=== PATIENT | male | born 1995 | race African-American/Black ===

== ENCOUNTER 2016-04-21 07:24 | Inpatient (IN) | payer OTHER ==
[~2016-04-21] VITALS: Ht 177.8 cm; Wt 58.5 kg
[~2016-04-21 07:24] MED LIST: CEFTIN500 MG PO; FOLIC ACID1 MG PO; HYDREA500 MG PO; VICODIN EQUIVAL1 TAB PO; ZITHROMAX500 MG PO
--- NOTE | 2016-04-21 08:30 | DIAGNOSTIC IMAGING REPORT ---
PROCEDURE: XR CHEST 1 VIEW INDICATION: SCIKLE CELL CRISIS, initial encounter TECHNIQUE: Portable AP view 07:38 a.m. COMPARISON: Chest x-ray 02/15/2016 FINDINGS: Stable left basilar pleural parenchymal scarring and left midlung granulomas. Heart and mediastinum are normal. Thorax is normal. IMPRESSION: 1. No acute changes 2. Left basilar pleural parenchymal scarring 3. Left midlung granulomas
--- NOTE | 2016-04-21 12:43 | ED CLINICAL REPORT ---
Clinical Report - Physicians/Mid Levels [facility] [address] [place] [address] 04/21/2016 7:25 Patient: SANTIAGO OLIVEIRA Time Seen: 07:22. Arrived- By ambulance. Historian- patient. HISTORY OF PRESENT ILLNESS Chief Complaint: SICKLE CELL CRISIS. At its maximum, severity described as severe. When seen in the E.D., severity described as severe. Modifying factors- (Better with fluids and meds). This started about 3 days ago and is still present. It has been waxing/waning. The patient has had muscle aches. Similar symptoms previously: Many times. REVIEW OF SYSTEMS The patient has had a subjective fever, a mild cough and chest pain (mild and resolved). No sore throat, nasal congestion, abdominal pain, nausea or vomiting. No difficulty with urination. He has had severe lower back pain. All systems otherwise negative, except as recorded above. PAST HISTORY PCP: [place] PROBLEMS: Pneumonia. Sickle Cell Disease. ADDITIONAL SURGERIES: no known surgeries. Problems: Pneumonia. Sickle Cell Disease. Sickle Cell Crisis. Additional Surgeries: no known surgeries. Medications: Hydroxyurea Oral. Folic Acid Oral. Allergies: No Known Drug Allergy. SOCIAL HISTORY Never smoker. No alcohol use or drug use. ADDITIONAL NOTES The nursing notes have been reviewed. PHYSICAL EXAM Vital Signs: 04/21/2016 07:39 BP: 129/75. HR: 75. RR: 19. O2 saturation: 100%. Pain level now: 8/10. 04/21/2016 07:21 BP: 135/86. HR: 67. RR: 12. O2 saturation: 100%. Temp: 98.7 F. Pain level now: 10/10. Appearance: Alert. Patient in mild distress. Eyes: Pupils equal, round and reactive to light. Eyes normal inspection. ENT: Pharynx normal. Neck: Normal inspection. Respiratory: No respiratory distress. Breath sounds normal. Chest nontender. Abdomen: No visible injury. Soft and nontender. Bowel sounds normal. Back: Normal inspection. Extremities: Extremities exhibit normal ROM. No lower extremity edema. Neuro: No alteration in mental status. LABS, X-RAYS, AND EKG EKG: Normal EKG. Rate: 64. Chest X-ray: (No acute changes. Old L basilar scarring). Laboratory Tests: [id number]: (BRIANA: 04/21/2016 07:50) ( MsgRcvd 04/21/2016 10:06) Final results Test Result Flag Units (Reference) RETIC # 0.1932 H M/uL (0.02-0.08) RETIC % 6.9 H % (0.5-1.5) CHANGE IN REPORTABLE RANGESValues reported are now absolute counts uncorrectedfor hematocrit. This change is effective 04/24/09. CBC w Diff: (BRIANA: 04/21/2016 07:48) ( MsgRcvd 04/21/2016 09:31) Final results Test Result Flag Units (Reference) WHITE BLOOD COUNT 14.2 H K/uL (4.5-11.5) CORRECTED WBC 13.7 K/uL RED BLOOD COUNT 2.80 L M/uL (4.50-5.90) HEMOGLOBIN 8.4 L gm/dL (13.5-17.5) HEMATOCRIT 25.5 L % (41.0-53.0) MEAN CELL VOLUME 91 fL (80-100) MEAN CORPUSCULAR HGB 30 pg (26-34) MEAN CORPUSCULAR HGB CONC 33 g/dL (31-37) RED CELL DISTRIBUTION WIDTH 23.7 H % (11.6-14.8) PLATELET COUNT 377 K/uL (150-400) POLY % 68 % (50-75) BAND % 6 % (0-8) LYMPH 9 L % (25-40) MONO 15 H % (3-14) EOSINOPHIL % 1 % (0-4) BASOPHIL % 1 % (0-2) METAMYELOCYTE % 0 % (0-1) MYELOCYTE 0 % (0-1) NUCLEATED RED BLOOD CELL 4 H (0-1) OTHER CELL TYPE 0 RBC MORPHOLOGY SICKLE CELLS 4+ POLYCHROMASIA 2+ SCHISTOCYTES 1+ TARGET CELLS 4+ ACANTHOCYTES 1+ CMP: (BRIANA: 04/21/2016 07:48) ( MsgRcvd 04/21/2016 08:46) Final results Test Result Flag Units (Reference) GLUCOSE 104 mg/dL (70-110) BUN 6 L mg/dL (7-18) CREATININE 0.8 mg/dL (0.6-1.3) Estimated GFR >60 mL/min Estimated GFR- >60 mL/min Note: Persistent reduction over 3 months in eGFR<60 mL/min/1.73 m2 defines CKD. Patients with eGFR values>=60 mL/min/1.73 m2 may also have CKD if evidence ofpersistent proteinuria. Additional information may be foundat [email or web address]. SODIUM 139 mmol/L (136-145) POTASSIUM 3.6 mmol/L (3.5-5.1) CHLORIDE 107 mmol/L (98-107) CARBON DIOXIDE 25 mmol/L (21-32) CALCIUM 7.9 L mg/dL (8.5-10.1) TOTAL PROTEIN 7.0 g/dL (6.4-8.2) ALBUMIN 4.1 g/dL (3.3-5.0) BILIRUBIN, TOTAL 1.5 H mg/dL (0.0-1.0) ALKALINE PHOSPHATASE 83 U/L (46-116) AST (SGOT) 41 H U/L (15-37) ALT (SGPT) 24 U/L (12-78) . PROGRESS AND PROCEDURES Course of Care: 08:02 04/21/16. He appears comfortable. He states his pain is still a 7/10. 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 His mom is doing that now. 09:05 04/21/16. Care transferred to Dr Holt due to change of shift/ R MD Dr. Charly Parks and I discussed the patient's history and examination findings as well as the results of his studies. I then reviewed the patient's history with him and examined him and my findings were consistent with those noted by Dr. Parks. I continued to follow the patient and in spite of aggressive attempts at pain management he continued to have severe pain. It had resolved in his lower back and shoulder blades however he developed some central chest pain. After multiple subsequent doses of Dilaudid this improved but did not resolve. We continued with hydration and I spoke with Dr. Joy. We will admit the patient for observation and continued pain management and IV fluids. Discussed case with on-call health care provider, (Benita). Reviewed test results and need for additional work-up. Agreed upon treatment plan, need for patient follow-up and decision to place in observation. Health care provider will see patient in hospital. Old medical records reviewed. Disposition orders written (in [facility]). Disposition: Admitted. Observation. CLINICAL IMPRESSION Vaso-occlusive sickle cell crisis. (Electronically signed by Clifford Holt MD 04/21/2016 16:32)
--- NOTE | 2016-04-21 12:43 | ED ORDER SUMMARY ---
..... Patient: SANTIAGO OLIVEIRA OrderSheet [facility] VisitID: [id number] [place] [address] 20y, M Registration Date/Time: 04/21/2016 ORDER SHEET Weight: 61.2 kg (stated) Allergies: No Known Drug Allergy GENERAL ORDERS: - (RETIULOCYTE COUNT) (07:29 04/21/2016 Saqib AMARO) (7:31 EHrupert R.N.) Chest 1V Urgent (07:04/21/2016 Saqib AMARO) (7:31 Suman R.N.) CBC w Diff Urgent (07:04/21/2016 Saqib AMARO) (7:31 Suman R.N.) CMP Urgent (07:04/21/2016 Saqib AMARO) (7:31 Suman R.N.) - (Yesterdays [place] visit) (07:35 04/21/2016 Saqib AMARO) (Ack 7:43 LNations ER Tech1) (7:56 LNations ER Tech1) EKG - ER Stat (12:37 04/21/2016 Anastasia AMARO) (Ack 12:38 NHouse ER Tech1) (12:56 LNations ER Tech1) MEDICATION ORDERS: IV FLUIDS: IV NS : initial bolus none -, then 1000 mL/hr for 1h (NOW); Urgent (BAG #1) (07:22 04/21/2016 Saqib AMARO) (Ack 7:27 JBoardley R.N.) (7:36 JBoardley R.N.) Dilaudid IV 1 mg + 0.5 MG (HIGH ALERT MEDICATION) (07:23 04/21/2016 Saqib AMARO) (Ack 7:27 JBoardley R.N.) (7:37 JBoardley R.N.) Zofran IV 4 mg (NOW) (07:24 04/21/2016 Saqib AMARO) (Ack 7:27 JBoardley R.N.) (7:37 JBoardley R.N.) Dilaudid IV 0.5 mg + 0.5 mg (HIGH ALERT MEDICATION) (08:04/21/2016 Saqib AMARO) (8:12 Suman R.N.) Toradol IV 30 mg (NOW) (08:26 04/21/2016 Saqib AMARO) (8:47 EHassan R.N.) IV NS : initial bolus none -, then 500 mL/hr for 2h (NOW); Urgent (08:49 04/21/2016 Saqib AMARO) (9:07 EHassan R.N.) Dilaudid IV 0.5 mg (May repeat every 15 minutes for a total of 1.5 mg) (09:30 04/21/2016 Suman R.N. verbal order read back to Anastasia AMARO) (9:37 WENCESLAOassan R.N.) Dilaudid IV 1 mg (HIGH ALERT MEDICATION, NOW) (11:58 04/21/2016 JBoarambika R.N. verbal order read back to Anastasia AMARO) (11:58 JBoardley R.N.) Dilaudid IV 1 mg (HIGH ALERT MEDICATION, NOW) (12:43 04/21/2016 NOHEMYoarambika R.N. verbal order read back to Anastasia AMARO) (12:43 JBoardlelyle R.N.) IV NS : initial bolus none -, then 1000 mL/hr for X1 (NOW); Tor (12:43 04/21/2016 JBoarambika R.N. verbal order read back to Anastasia AMARO) (12:44 JBoardley R.N.) Dilaudid IV 1 mg (NOW) (14:24 04/21/2016 Suman R.N. verbal order read back to Anastasia AMARO) (14:33 WENCESLAOassan R.N.) ORDER SHEET NOTES: [Electronically signed by Moira Mckenna R.N. (15:49 04/21/2016)] [Electronically signed by Clifford Holt MD (16:32 04/21/2016)] [Electronically locked/signed by Moira Mckenna R.N. (15:49 04/21/2016)]
--- NOTE | 2016-04-21 12:43 | ED CLINICAL REPORT ---
Clinical Report - Physicians/Mid Levels [facility] [address] [place] [address] 04/21/2016 7:25 Patient: SANTIAGO OLIVEIRA Time Seen: 07:22. Arrived- By ambulance. Historian- patient. HISTORY OF PRESENT ILLNESS Chief Complaint: SICKLE CELL CRISIS. At its maximum, severity described as severe. When seen in the E.D., severity described as severe. Modifying factors- (Better with fluids and meds). This started about 3 days ago and is still present. It has been waxing/waning. The patient has had muscle aches. Similar symptoms previously: Many times. REVIEW OF SYSTEMS The patient has had a subjective fever, a mild cough and chest pain (mild and resolved). No sore throat, nasal congestion, abdominal pain, nausea or vomiting. No difficulty with urination. He has had severe lower back pain. All systems otherwise negative, except as recorded above. PAST HISTORY PCP: [place] PROBLEMS: Pneumonia. Sickle Cell Disease. ADDITIONAL SURGERIES: no known surgeries. Problems: Pneumonia. Sickle Cell Disease. Sickle Cell Crisis. Additional Surgeries: no known surgeries. Medications: Hydroxyurea Oral. Folic Acid Oral. Allergies: No Known Drug Allergy. SOCIAL HISTORY Never smoker. No alcohol use or drug use. ADDITIONAL NOTES The nursing notes have been reviewed. PHYSICAL EXAM Vital Signs: 04/21/2016 07:39 BP: 129/75. HR: 75. RR: 19. O2 saturation: 100%. Pain level now: 8/10. 04/21/2016 07:21 BP: 135/86. HR: 67. RR: 12. O2 saturation: 100%. Temp: 98.7 F. Pain level now: 10/10. Appearance: Alert. Patient in mild distress. Eyes: Pupils equal, round and reactive to light. Eyes normal inspection. ENT: Pharynx normal. Neck: Normal inspection. Respiratory: No respiratory distress. Breath sounds normal. Chest nontender. Abdomen: No visible injury. Soft and nontender. Bowel sounds normal. Back: Normal inspection. Extremities: Extremities exhibit normal ROM. No lower extremity edema. Neuro: No alteration in mental status. LABS, X-RAYS, AND EKG EKG: Normal EKG. Rate: 64. Chest X-ray: (No acute changes. Old L basilar scarring). Laboratory Tests: [id number]: (BRIANA: 04/21/2016 07:50) ( MsgRcvd 04/21/2016 10:06) Final results Test Result Flag Units (Reference) RETIC # 0.1932 H M/uL (0.02-0.08) RETIC % 6.9 H % (0.5-1.5) CHANGE IN REPORTABLE RANGESValues reported are now absolute counts uncorrectedfor hematocrit. This change is effective 04/24/09. CBC w Diff: (BRIANA: 04/21/2016 07:48) ( MsgRcvd 04/21/2016 09:31) Final results Test Result Flag Units (Reference) WHITE BLOOD COUNT 14.2 H K/uL (4.5-11.5) CORRECTED WBC 13.7 K/uL RED BLOOD COUNT 2.80 L M/uL (4.50-5.90) HEMOGLOBIN 8.4 L gm/dL (13.5-17.5) HEMATOCRIT 25.5 L % (41.0-53.0) MEAN CELL VOLUME 91 fL (80-100) MEAN CORPUSCULAR HGB 30 pg (26-34) MEAN CORPUSCULAR HGB CONC 33 g/dL (31-37) RED CELL DISTRIBUTION WIDTH 23.7 H % (11.6-14.8) PLATELET COUNT 377 K/uL (150-400) POLY % 68 % (50-75) BAND % 6 % (0-8) LYMPH 9 L % (25-40) MONO 15 H % (3-14) EOSINOPHIL % 1 % (0-4) BASOPHIL % 1 % (0-2) METAMYELOCYTE % 0 % (0-1) MYELOCYTE 0 % (0-1) NUCLEATED RED BLOOD CELL 4 H (0-1) OTHER CELL TYPE 0 RBC MORPHOLOGY SICKLE CELLS 4+ POLYCHROMASIA 2+ SCHISTOCYTES 1+ TARGET CELLS 4+ ACANTHOCYTES 1+ CMP: (BRIANA: 04/21/2016 07:48) ( MsgRcvd 04/21/2016 08:46) Final results Test Result Flag Units (Reference) GLUCOSE 104 mg/dL (70-110) BUN 6 L mg/dL (7-18) CREATININE 0.8 mg/dL (0.6-1.3) Estimated GFR >60 mL/min Estimated GFR- >60 mL/min Note: Persistent reduction over 3 months in eGFR<60 mL/min/1.73 m2 defines CKD. Patients with eGFR values>=60 mL/min/1.73 m2 may also have CKD if evidence ofpersistent proteinuria. Additional information may be foundat [email or web address]. SODIUM 139 mmol/L (136-145) POTASSIUM 3.6 mmol/L (3.5-5.1) CHLORIDE 107 mmol/L (98-107) CARBON DIOXIDE 25 mmol/L (21-32) CALCIUM 7.9 L mg/dL (8.5-10.1) TOTAL PROTEIN 7.0 g/dL (6.4-8.2) ALBUMIN 4.1 g/dL (3.3-5.0) BILIRUBIN, TOTAL 1.5 H mg/dL (0.0-1.0) ALKALINE PHOSPHATASE 83 U/L (46-116) AST (SGOT) 41 H U/L (15-37) ALT (SGPT) 24 U/L (12-78) . PROGRESS AND PROCEDURES Course of Care: 08:02 04/21/16. He appears comfortable. He states his pain is still a 7/10. He has established primary care with [facility] but has yet to arrange a follow up with a wreath maker. His mom is doing that now. 09:05 04/21/16. Care transferred to Dr Holt due to change of shift/ R MD Dr. Charly Parks and I discussed the patient's history and examination findings as well as the results of his studies. I then reviewed the patient's history with him and examined him and my findings were consistent with those noted by Dr. Parks. I continued to follow the patient and in spite of aggressive attempts at pain management he continued to have severe pain. It had resolved in his lower back and shoulder blades however he developed some central chest pain. After multiple subsequent doses of Dilaudid this improved but did not resolve. We continued with hydration and I spoke with Dr. Joy. We will admit the patient for observation and continued pain management and IV fluids. Discussed case with on-call health care provider, (Benita). Reviewed test results and need for additional work-up. Agreed upon treatment plan, need for patient follow-up and decision to place in observation. Health care provider will see patient in hospital. Old medical records reviewed. Disposition orders written (in [facility]). Disposition: Admitted. Observation. CLINICAL IMPRESSION Vaso-occlusive sickle cell crisis. (Electronically signed by Clifford Holt MD 04/21/2016 16:32)
--- NOTE | 2016-04-21 12:43 | ED NURSING NOTES ---
Clinical Report - Nurses [facility] [address] [place] [address] 04/21/2016 7:25 Patient: SANTIAGO OLIVEIRA TRIAGE Triage time 0717 AM. Acuity: LEVEL 3. Alert. No acute distress. SEPSIS SCREEN: Sepsis Screen. Negative (no infection suspected/documented). BREATHALYZER: Breathalyzer. --07:29 Moira Mckenna R.N. 07:21 04/21/16. BP: 135/86 (regular adult cuff) taken on the right arm, via an automated monitor, while lying. HR: 67 (regular). RR: 12. O2 saturation: 100% on room air. Temp: 98.7 F (oral). Pain level now: 01/11. --07:29 Moira Mckenna R.N. Chief Complaint: (Sickle Cell). 07:17 late entry - AM. --15:48 Moira Mckenna R.N. late entry - 07:20 AM. --07:39 Moira Mckenna R.N. 07:29 AM correction to prior entry -no breathalyzer. --07:59 Moira Mckenna R.N. Weight: 61.2 kg stated. Height/Length: 70 inches Per Patient. BMI: 19.4. --07:23 Moira Mckenna R.N. Medications Folic Acid Oral. --07:23 Moira Mckenna R.N. Hydroxyurea Oral. --07:28 Moira Mckenna R.N. Allergies No Known Drug Allergy. --07:23 Moira Mckenna R.N. Medication/allergy information source: the patient. --07:29 Moira Mckenna R.N. History Arrived by EMS. Historian: patient. Primary physician (Dr. Lalo Stokes). ( Pt arrived via EMS, sickle cell crisis, states started 2 days ago, has an appointment with Dr. trevino, but could not take the pain. Pt states pain is mostly from right side of head, down to elbow, and left side back pain 10/10.). Onset. (2 days ago). He has had fever and a cough. Reports muscle aches. 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 (1000 mg). PAST MEDICAL HX: Immunizations: up-to-date. SOCIAL HX: Never smoker. No alcohol use or drug use. No infectious disease exposure. ABUSE ASSESSMENT: No report of abuse. SELF HARM ASSESSMENT: A self harm assessment was performed. The patient answered "no" to the question "Do you have thoughts of harming or killing yourself?" and "Have you recently had thoughts about harming or killing others?". FALL RISK ASSESSMENT: Fall risk assessment completed. No fall risk identified. NUTRITIONAL RISK ASSESSMENT: The nutritional risk assessment revealed no deficiencies. FUNCTIONAL ASSESSMENT: Functional assessment: no impairments noted. LEARNING NEEDS ASSESSMENT: The learning needs assessment revealed no barriers. SKIN INTEGRITY ASSESSMENT: Skin integrity risk assessment completed. No skin integrity risk identified. --07:29 Moira Mckenna R.N. Arrived by EMS, and being carried from home (stretcher). 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 See report. Medications given- (200 micrograms). ( VSS). Upon arrival patient awake. IV infusing x1. school lunch monitor and O2 sat monitor in place. --07:39 Moira Mckenna R.N. PROBLEMS: Pneumonia. Sickle Cell Disease. --07:28 Moira Mckenna R.N. ADDITIONAL SURGERIES: no known surgeries. Interventions ID band on patient. --07:29 Moira Mckenna R.N. PHYSICAL ASSESSMENT To room via stretcher. GENERAL / NEURO / PSYCH: Alert. Oriented X 4. Appears in pain. HEENT: Pupils equal, round and reactive to light. No facial asymmetry noted. Mucous membranes are pink. RESPIRATORY: Respirations not labored. Chest nontender. Breath sounds within normal limits. CVS: Normal sinus rhythm noted. Capillary refill less than 2 seconds. Pulses within normal limits. GI / : Abdomen soft and nontender and normal bowel sounds. SKIN: Skin intact. Skin is warm and dry. Normal skin turgor. --07:30 Moira Mckenna R.N. NURSING PROGRESS NOTES 07:00 04/21/2016 Site #1 started prior to arrival by EMS via IV in the left antecubital space with an 18g angiocath. --07:36 Sourav Sahni R.N. 07:26 04/21/2016 Started bag #1 1000 mL IV Fluids IV NS (Saline); at 1000 mL/hr over 1 hour(s) via site #1. Allergies verified and confirmed 5 rights. IV patency established. IV site checked: no pain, redness, or swelling. IV flushed thoroughly pre- and post-medication administration. Completed per protocol. --07:36 Sourav Sahni R.N. 07:27 04/21/2016 Dilaudid (HYDROmorphone HCl PF) IVP 1 mg given over 2 minute(s) via site #1. Allergies verified, confirmed 5 rights and sedative warning given to the patient. IV patency established. IV site checked: no pain, redness, or swelling. IV flushed thoroughly pre- and post-medication administration. IVP given by RN. --07:37 Sourav Sahni R.N. 07:27 04/21/2016 Zofran (Ondansetron HCl) IVP 4 mg given over 2 minute(s) via site #1. Allergies verified and confirmed 5 rights. IV patency established. IV site checked: no pain, redness, or swelling. IV flushed thoroughly pre- and post-medication administration. IVP given by RN. --07:37 Sourav Sahni R.N. 07:39 04/21/16. BP: 129/75 (regular adult cuff) taken on the right arm, via an automated monitor, while lying. HR: 75 (regular and normal rate). RR: 19 (regular and unlabored). O2 saturation: 100%. O2 started via nasal cannula at 2 liters/minute. Pain level now: 11/11. --07:45 Moira Mckenna RFranciscoN. Cardiac rhythm: normal sinus rhythm. The initial plan of care for this patient has been created This plan of care was discussed with the patient. Oxygen administered. Monitoring of patient in place. Patient ID band checked for patient name, birthdate and medical record number. Blood samples drawn from the right antecubital space with 22g butterfly by lab per protocol ; labeled in presence of the patient and sent to lab: rainbow set. Portable chest x-ray performed. Patient gowned. Warming measures: blanket applied. Reassurance given. Reassessment after oxygen and fluids administered and medication administered. He has had no adverse reaction. Overall patient status- he states feels better (8/10). GENERAL / NEURO / PSYCH: The patient reports headache. Denies anxiety. RESPIRATORY: Denies difficulty breathing. Respiratory distress present. Breath sounds abnormal. CVS: Denies chest pain. Normal sinus rhythm noted. GI / : The patient reports nausea. SKIN: Skin is warm and dry. Skin color within normal limits. Two patient identifiers checked. Call light placed in reach. Side rails up x 2. Bed placed in lowest position. Brakes of bed on. Brakes of chair on. --07:45 Moira Mckenna R.N. 07:46 04/21/2016 Dilaudid IVP Response: no adverse reaction pain is improving. Symptoms are the same. The patient feels the same. ED physician notified. --07:51 Moira Mckenna R.N. 07:51 04/21/2016 Dilaudid (HYDROmorphone HCl PF) IVP 0.5 mg given over 30 second(s) via site #1. Allergies verified, confirmed 5 rights and sedative warning given to the patient. IV patency established. IV site checked: no pain, redness, or swelling. IV flushed thoroughly pre- and post-medication administration. IVP given by RN. --07:51 Moira Mckenna R.N. 08:08 04/21/2016 Dilaudid IVP Response: no adverse reaction pain is improving. Symptoms have improved the patient feels better. ED physician notified. --08:11 Moira Mckenna R.N. 08:12 04/21/2016 Dilaudid (HYDROmorphone HCl PF) IVP 0.5 mg given over 1 minute(s) via site #1. Allergies verified, confirmed 5 rights and sedative warning given to the patient. IV patency established. IV site checked: no pain, redness, or swelling. IV flushed thoroughly pre- and post-medication administration. IVP given by RN. --08:12 Moira Mckenna R.N. 08:10 04/21/16. BP: 121/63 (regular adult cuff) taken on the right arm, via an automated monitor, while lying. HR: 64 (regular and normal rate). RR: 16 (regular, unlabored and normal). O2 saturation: 100%. O2 started via nasal cannula at 2 liters/minute. Pain level now: 11/11. --08:16 Moira Mckenna R.N. Cardiac rhythm: normal sinus rhythm. Reassurance given. Reassessment after oxygen and fluids administered and medication administered. He is resting quietly and has had no adverse reaction. Overall patient status is improved- he states feels better. GENERAL / NEURO / PSYCH: Denies headache or anxiety. RESPIRATORY: No respiratory distress present. Respiratory distress present. CVS: Denies chest pain. Normal sinus rhythm noted. GI / : Denies nausea. Two patient identifiers checked. Call light placed in reach. Side rails up x 2. Bed placed in lowest position. Brakes of bed on. Brakes of chair on. --08:16 Moira Mckenna R.N. 08:32 04/21/2016 Dilaudid IVP Response: no adverse reaction symptoms are the same. The patient feels the same. --08:47 Moira Mckenna R.N. 08:37 04/21/2016 Toradol IVP 30 mg given over 1 minute(s) via site #1. Allergies verified and confirmed 5 rights. IV patency established. IV site checked: no pain, redness, or swelling. IV flushed thoroughly pre- and post-medication administration. IVP given by RN. --08:47 Moira Mckenna R.N. 09:00 04/21/2016 Dilaudid (HYDROmorphone HCl PF) IVP 0.5 mg given over 1 minute(s) via site #1. Allergies verified, confirmed 5 rights and sedative warning given to the patient. IV patency established. IV site checked: no pain, redness, or swelling. IV flushed thoroughly pre- and post-medication administration. IVP given by RN. --09:05 Miora Mckenna R.N. 09:05 04/21/2016 Toradol IVP Response: no adverse reaction pain is improving. Symptoms have improved the patient feels better. ED physician notified. --09:05 Moira Mckenna R.N. 09:04/21/2016 IV Fluids IV NS Response: no adverse reaction. --09:05 Moira Mckenna R.N. 09:07 04/21/2016 Started bag #1 1000 mL IV Fluids IV NS (Saline); at 500 mL/hr over 2 hour(s) via site #1 via IV pump. Allergies verified and confirmed 5 rights. IV patency established. IV site checked: no pain, redness, or swelling. IV flushed thoroughly pre- and post-medication administration. --09:07 Moira Mckenna R.N. 09:07 04/21/2016 IV Fluids IV NS Discontinued: bag #1 completed upon admission. Total amount infused: 800 mL. IV patency established. IV site checked: no pain, redness, or swelling. IV flushed thoroughly. --09:07 Moira Mckenna R.N. 09:37 04/21/2016 Dilaudid (HYDROmorphone HCl PF) IVP 0.5 mg given over 1 minute(s) via site #1. Allergies verified, confirmed 5 rights and sedative warning given to the patient. IV patency established. IV site checked: no pain, redness, or swelling. IV flushed thoroughly pre- and post-medication administration. IVP given by RN. --09:37 Moira Mckenna R.N. 09:30 04/21/16. BP: 142/82 taken on the right arm, via an automated monitor, while lying. HR: 62. RR: 15. O2 saturation: 100%. Pain level now: 710. --09:39 Moira Mckenna R.N. Cardiac rhythm: normal sinus rhythm. Reassurance given. Reassessment after oxygen and fluids administered and medication administered. He has had no adverse reaction. Overall patient status is improved- he states feels the same (Pain down to a 6/7). ( Dr. Holt aware of pt's pain level, dilaudid given as ordered and fluids infusing). GENERAL / NEURO / PSYCH: Denies headache. RESPIRATORY: Denies difficulty breathing. CVS: Denies chest pain. GI / : Denies nausea. Two patient identifiers checked. Call light placed in reach. Side rails up x 2. Brakes of bed on. Brakes of chair on. --09:39 Moira Mckenna R.N. 10:01 04/21/2016 Dilaudid IVP Response: no adverse reaction pain is worsening. Symptoms have gotten worse. The patient feels worse. --10:01 Moira Mckenna R.N. 10:02 04/21/2016 Dilaudid (HYDROmorphone HCl PF) IVP 0.5 mg given over 1 minute(s) via site #1. Allergies verified, confirmed 5 rights and sedative warning given to the patient. IV patency established. IV site checked: no pain, redness, or swelling. IV flushed thoroughly pre- and post-medication administration. IVP given by RN. --10:02 Moira Mckenna R.N. Oxygen administered. Reassurance given. The patient has had no adverse reaction. Overall patient status is improved- he states feels worse. ( Pt found moaning out of bed sitting in chair, O2 and monitor off,). RESPIRATORY: Denies difficulty breathing. CVS: Denies chest pain. GI / : Denies nausea. Two patient identifiers checked. Call light placed in reach. Side rails up x 1. Brakes of bed on. Brakes of chair on. --10:05 Moira Mckenna R.N. 10:02 04/21/16. BP: 142/82. HR: 91. RR: 20. O2 saturation: 92% on room air. Pain level now: 01/11. --10:05 Moira Mckenna R.N. 10:15 04/21/2016 Dilaudid (HYDROmorphone HCl PF) IVP 0.5 mg given over 1 minute(s) via site #1. Allergies verified, confirmed 5 rights and sedative warning given to the patient. IV patency established. IV site checked: no pain, redness, or swelling. IV flushed thoroughly pre- and post-medication administration. IVP given by RN. --10:15 Moira Mckenna R.N. 10:16 04/21/2016 Dilaudid IVP Response: no adverse reaction pain is worsening. Symptoms have gotten worse. The patient feels worse. ED physician notified (Aware, will given another dose sooner than 15 minutes (ok by MD Holt). --10:16 Moira Mckenna R.N. 10:52 04/21/2016 Dilaudid IVP Response: no adverse reaction pain is improving. Symptoms are the same. The patient feels better. --11:02 Moira Mckenna R.N. 11:24 04/21/2016 IV Fluids IV NS Discontinued: bag #1 infused. Total amount infused: 1 Liter mL. IV patency established. IV site checked: no pain, redness, or swelling. IV flushed thoroughly. --11:49 Sourav Sahni R.N. 11:42 04/21/16. ( Pt ambulated to bathroom without difficulty). --11:42 Sourav Sahni R.N. 11:58 04/21/2016 Dilaudid (HYDROmorphone HCl PF) IVP 1 mg given over 2 minute(s) via site #1. Allergies verified, confirmed 5 rights and sedative warning given. IV patency established. IV site checked: no pain, redness, or swelling. IV flushed thoroughly pre- and post-medication administration. IVP given by RN. --11:58 Sourav Sahni R.N. 11:58 04/21/16. Patient and family informed about reason for wait and about plan of care. --11:58 Sourav Sahni R.N. 12:00 04/21/16. ( Pt calling mother to come and pick him up). --12:00 Sourav Sahni R.N. 12:43 04/21/2016 Dilaudid (HYDROmorphone HCl PF) IVP 1 mg given over 2 minute(s) via site #1. Allergies verified, confirmed 5 rights and sedative warning given to the patient. IV patency established. IV site checked: no pain, redness, or swelling. IV flushed thoroughly pre- and post-medication administration. IVP given by RN. --12:43 Sourav Sahni R.N. 12:44 04/21/2016 Started bag #1 1000 mL IV Fluids IV NS (Saline); at 1000 mL/hr over 1 hour(s) via site #1. Allergies verified and confirmed 5 rights. Completed per protocol. --12:44 Sourav Sahni R.N. 12:44 04/21/16. ( Pt to be admitted for sickle cell crisis, pt aware). --12:44 Sourav Sahni R.N. 12:45 04/21/16. ( Pts pain has not been controlled with IV pain meds). --12:45 Sourav Sahni R.N. 12:46 04/21/16. --12:46 Sourav Sahni R.N. 12:46 04/21/16. BP: 140/92. HR: 61. RR: 14. O2 saturation: 100% on room air. Temp: 98.1 F (oral). Pain level now: 10/11. --12:46 Sourav Sahni R.N. 12:46 04/21/16. Pulse oximeter and NIBP monitor placed on patient; monitor alarms on. --12:46 Sourav Sahni R.N. EKG time: (1350). EKG was ordered, performed by a tech and shown to the ED physician. --12:57 Briana Vargas ER Tech1 13:47 04/21/2016 IV Fluids IV NS Discontinued: infused. Total amount infused: 1 Liter mL. IV patency established. IV site checked: no pain, redness, or swelling. IV flushed thoroughly. --13:47 Sourav Sahni R.N. 13:47 04/21/16. ( Pt is ambulating around room, feels better). --13:47 Sourav Sahni R.N. 14:33 04/21/2016 Dilaudid (HYDROmorphone HCl PF) IVP 1 mg given over 2 minute(s) via site #1. Allergies verified, confirmed 5 rights and sedative warning given to the patient. IV patency established. IV site checked: no pain, redness, or swelling. IV flushed thoroughly pre- and post-medication administration. IVP given by RN. --14:33 Moira Mckenna R.N. 15:08 04/21/2016 Dilaudid IVP Response: no adverse reaction pain is improving. Symptoms are the same. The patient feels the same. --15:33 Moira Mckenna R.N. Reassessment after oxygen and fluids administered and medication administered. He has had no adverse reaction. Overall patient status is improved- he states feels the same. RESPIRATORY: Respiratory distress present. GI / : Denies nausea. SKIN: Skin is warm and dry. Skin color within normal limits. --15:41 Moira Mckenna R.N. DISPOSITION / DISCHARGE 15:08 04/21/16. --15:08 Sourav Sahni R.N. 15:08 04/21/16. BP: 131/77. HR: 72. RR: 16. O2 saturation: 99% on room air. Temp: 98.2 F (oral). Pain level now: 10/11. --15:08 Sourav Sahni R.N. 15:26 04/21/2016 Site #1 reassessed; patent and infusing well. Converted to saline lock. Flushed with 10 mL saline. --15:31 Moira Mckenna R.N. Departure time: 1530 PM. Condition at departure: improved and stable. The goals identified in the patient's plan of care were met. Transported via stretcher by transport team with O2. Report was given to a nurse via a phone call. Report included patient's care, treatment and condition and medications given to the patient in the ED and patient's home medications. All questions were answered. Report was acknowledged and care was transferred. ( Pt transferred to 302, with O2, report given to SURYA Tobin). FALL RISK ASSESSMENT: Fall risk assessment completed. No fall risk identified. --15:31 Moira Mckenna R.N. Locked/Released at 04/21/2016 15:49 by Moira Mckenna R.N.
--- NOTE | 2016-04-21 12:43 | ED ORDER SUMMARY ---
..... Patient: SANTIAGO OLIVEIRA OrderSheet [facility] VisitID: [id number] [place] [address] 20y, M Registration Date/Time: 04/21/2016 ORDER SHEET Weight: 61.2 kg (stated) Allergies: No Known Drug Allergy GENERAL ORDERS: - (RETIULOCYTE COUNT) (07:29 04/21/2016 Saqib AMARO) (7:31 EHrupert R.N.) Chest 1V Urgent (07:04/21/2016 Saqib AMARO) (7:31 Suman R.N.) CBC w Diff Urgent (07:04/21/2016 Saqib AMARO) (7:31 Suman R.N.) CMP Urgent (07:04/21/2016 Saqib AMARO) (7:31 Suman R.N.) - (Yesterdays [place] visit) (07:35 04/21/2016 Saqib AMARO) (Ack 7:43 LNations ER Tech1) (7:56 LNations ER Tech1) EKG - ER Stat (12:37 04/21/2016 Anastasia AMARO) (Ack 12:38 NHouse ER Tech1) (12:56 LNations ER Tech1) MEDICATION ORDERS: IV FLUIDS: IV NS : initial bolus none -, then 1000 mL/hr for 1h (NOW); Urgent (BAG #1) (07:22 04/21/2016 Saqib AMARO) (Ack 7:27 JBoardley R.N.) (7:36 JBoardley R.N.) Dilaudid IV 1 mg + 0.5 MG (HIGH ALERT MEDICATION) (07:23 04/21/2016 Saqib AMARO) (Ack 7:27 JBoardley R.N.) (7:37 JBoardley R.N.) Zofran IV 4 mg (NOW) (07:24 04/21/2016 Saqib AMARO) (Ack 7:27 JBoardley R.N.) (7:37 JBoardley R.N.) Dilaudid IV 0.5 mg + 0.5 mg (HIGH ALERT MEDICATION) (08:04/21/2016 Saqib AMARO) (8:12 Suman R.N.) Toradol IV 30 mg (NOW) (08:26 04/21/2016 Saqib AMARO) (8:47 EHassan R.N.) IV NS : initial bolus none -, then 500 mL/hr for 2h (NOW); Urgent (08:49 04/21/2016 Saqib AMARO) (9:07 EHassan R.N.) Dilaudid IV 0.5 mg (May repeat every 15 minutes for a total of 1.5 mg) (09:30 04/21/2016 Suman R.N. verbal order read back to Anastasia AMARO) (9:37 WENCESLAOassan R.N.) Dilaudid IV 1 mg (HIGH ALERT MEDICATION, NOW) (11:58 04/21/2016 JBoarambika R.N. verbal order read back to Anastasia AMARO) (11:58 JBoardley R.N.) Dilaudid IV 1 mg (HIGH ALERT MEDICATION, NOW) (12:43 04/21/2016 NOHEMYoarambika R.N. verbal order read back to Anastasia AMARO) (12:43 JBoardlelyle R.N.) IV NS : initial bolus none -, then 1000 mL/hr for X1 (NOW); Tor (12:43 04/21/2016 JBoarambika R.N. verbal order read back to Anastasia AMARO) (12:44 JBoardley R.N.) Dilaudid IV 1 mg (NOW) (14:24 04/21/2016 Suman R.N. verbal order read back to Anastasia AMARO) (14:33 WENCESLAOassan R.N.) ORDER SHEET NOTES: [Electronically signed by Moira Mckenna R.N. (15:49 04/21/2016)] [Electronically signed by Clifford Holt MD (16:32 04/21/2016)] [Electronically locked/signed by Moira Mckenna R.N. (15:49 04/21/2016)]
[2016-04-21 15:46] VITALS: BP 148/96
--- NOTE | 2016-04-21 16:33 | ED DISCHARGE INSTRUCTIONS ---
Patient: SANTIAGO OLIVEIRA General Instructions [facility] VisitID: [id number] [address] [place] [address] 20y, M Registration Date/Time: 04/21/2016 Vaso-occlusive sickle cell crisis. (Electronically signed by Clifford Holt MD 04/21/2016 16:32)
--- NOTE | 2016-04-21 16:33 | ED MAR SUMMARY ---
..... Medication Administration Record [facility] [address] [place] [address] Patient: SANTIAGO OLIVEIRA Visit ID: [id number] 20y, M Weight: 61.2 kg Height/Length: 70 in BMI: 19.4 ALLERGIES: No Known Drug Allergy Start 07:04/21/2016 Sourav Sahni R.N., Stop 09:04/21/2016 Moira Mckenna R.N. Medication Administered: IV NS (SALINE), Dose: IV Fluids over 1 hour(s), Rate: 1000 mL/hr, Dispensed: 1000 mL bag, Site: #1 left AC. Medication Ordered: IV NS : initial bolus none -, then 1000 mL/hr for 1h (NOW); Urgent (BAG #1). Given 07:04/21/2016 Sourav Sahni R.N. Medication Administered: DILAUDID [IVP] (HYDROMORPHONE HCL PF), Dose: 1 mg IVP over 2 minute(s), Site: #1 left AC. Medication Ordered: Dilaudid IV 1 mg + 0.5 MG (HIGH ALERT MEDICATION). Given 07:04/21/2016 Sourav Sahni R.N. Medication Administered: ZOFRAN [IVP] (ONDANSETRON HCL), Dose: 4 mg IVP over 2 minute(s), Site: #1 left AC. Medication Ordered: Zofran IV 4 mg (NOW). Given 07:51 04/21/2016 Moira Mckenna R.N. Medication Administered: DILAUDID [IVP] (HYDROMORPHONE HCL PF), Dose: 0.5 mg IVP over 30 second(s), Site: #1 left AC. Medication Ordered: Dilaudid IV 1 mg + 0.5 MG (HIGH ALERT MEDICATION). Given 08:12 04/21/2016 Moira Mckenna R.N. Medication Administered: DILAUDID [IVP] (HYDROMORPHONE HCL PF), Dose: 0.5 mg IVP over 1 minute(s), Site: #1 left AC. Medication Ordered: Dilaudid IV 0.5 mg + 0.5 mg (HIGH ALERT MEDICATION). Given 08:37 04/21/2016 Moira Mckenna R.N. Medication Administered: TORADOL [IVP], Dose: 30 mg IVP over 1 minute(s), Site: #1 left AC. Medication Ordered: Toradol IV 30 mg (NOW). Given 09:00 04/21/2016 Moira Mckenna R.N. Medication Administered: DILAUDID [IVP] (HYDROMORPHONE HCL PF), Dose: 0.5 mg IVP over 1 minute(s), Site: #1 left AC. Medication Ordered: Dilaudid IV 0.5 mg + 0.5 mg (HIGH ALERT MEDICATION). Start 09:07 04/21/2016 Moira Mckenna R.N., Stop 11:24 04/21/2016 Sourav Sahni R.N. Medication Administered: IV NS (SALINE), Dose: IV Fluids over 2 hour(s), Rate: 500 mL/hr, Dispensed: 1000 mL bag, Site: #1 left AC. Medication Ordered: IV NS : initial bolus none -, then 500 mL/hr for 2h (NOW); Urgent. Given 09:37 04/21/2016 Moira Mckenna R.N. Medication Administered: DILAUDID [IVP] (HYDROMORPHONE HCL PF), Dose: 0.5 mg IVP over 1 minute(s), Site: #1 left AC. Medication Ordered: Dilaudid IV 0.5 mg (May repeat every 15 minutes for a total of 1.5 mg). Given 10:02 04/21/2016 Moira Mckenna R.N. Medication Administered: DILAUDID [IVP] (HYDROMORPHONE HCL PF), Dose: 0.5 mg IVP over 1 minute(s), Site: #1 left AC. Medication Ordered: Dilaudid IV 0.5 mg (May repeat every 15 minutes for a total of 1.5 mg). Given 10:15 04/21/2016 Moira Mckenna R.N. Medication Administered: DILAUDID [IVP] (HYDROMORPHONE HCL PF), Dose: 0.5 mg IVP over 1 minute(s), Site: #1 left AC. Medication Ordered: Dilaudid IV 0.5 mg (May repeat every 15 minutes for a total of 1.5 mg). Given 11:58 04/21/2016 Sourav Sahni R.N. Medication Administered: DILAUDID [IVP] (HYDROMORPHONE HCL PF), Dose: 1 mg IVP over 2 minute(s), Site: #1 left AC. Medication Ordered: Dilaudid IV 1 mg (HIGH ALERT MEDICATION, NOW). Given 12:43 04/21/2016 Sourav Sahni R.N. Medication Administered: DILAUDID [IVP] (HYDROMORPHONE HCL PF), Dose: 1 mg IVP over 2 minute(s), Site: #1 left AC. Medication Ordered: Dilaudid IV 1 mg (HIGH ALERT MEDICATION, NOW). Start 12:44 04/21/2016 Sourav Sahni R.N., Stop 13:47 04/21/2016 Sourav Sahni R.N. Medication Administered: IV NS (SALINE), Dose: IV Fluids over 1 hour(s), Rate: 1000 mL/hr, Dispensed: 1000 mL bag, Site: #1 left AC. Medication Ordered: IV NS : initial bolus none -, then 1000 mL/hr for X1 (NOW); Tor. Given 14:33 04/21/2016 Moira Mckenna R.N. Medication Administered: DILAUDID [IVP] (HYDROMORPHONE HCL PF), Dose: 1 mg IVP over 2 minute(s), Site: #1 left AC. Medication Ordered: Dilaudid IV 1 mg (NOW).
--- NOTE | 2016-04-21 16:33 | ED DISCHARGE INSTRUCTIONS ---
Patient: SANTIAGO OLIVEIRA General Instructions [facility] VisitID: [id number] [address] [place] [address] 20y, M Registration Date/Time: 04/21/2016 Vaso-occlusive sickle cell crisis. (Electronically signed by Clifford Holt MD 04/21/2016 16:32)
--- NOTE | 2016-04-21 16:33 | ED MED RECONCILIATION SUMMARY ---
Patient: SANTIAGO OLIVEIRA Medication Reconciliation Report [facility] VisitID: [id number] [address] [place] [address] 20y, M Registration Date/Time: 04/21/2016 Weight: 61.2 kg Height/Length: 70 in. BMI: 19.4 ALLERGIES: No Known Drug Allergy The patient's Home Medications are listed below: THE FOLLOWING MEDICATIONS NEED TO BE RECONCILED: Folic Acid Oral Hydroxyurea Oral The source(s) of the original Home Medication information: patient The following Medications were given to the patient in the Emergency Department: IV NS IV Fluids bolus 0, then 1000 mL/hr, administered: 04/21/2016 7:26:00 AM Dilaudid [IVP] IVP 1 mg, administered: 04/21/2016 7:27:00 AM Zofran [IVP] IVP 4 mg, administered: 04/21/2016 7:27:00 AM Dilaudid [IVP] IVP 0.5 mg, administered: 04/21/2016 7:51:00 AM Dilaudid [IVP] IVP 0.5 mg, administered: 04/21/2016 8:12:00 AM Toradol [IVP] IVP 30 mg, administered: 04/21/2016 8:37:00 AM Dilaudid [IVP] IVP 0.5 mg, administered: 04/21/2016 9:00:00 AM IV NS IV Fluids bolus 0, then 500 mL/hr, administered: 04/21/2016 9:07:00 AM Dilaudid [IVP] IVP 0.5 mg, administered: 04/21/2016 9:37:00 AM Dilaudid [IVP] IVP 0.5 mg, administered: 04/21/2016 10:02:00 AM Dilaudid [IVP] IVP 0.5 mg, administered: 04/21/2016 10:15:00 AM Dilaudid [IVP] IVP 1 mg, administered: 04/21/2016 11:58:00 AM Dilaudid [IVP] IVP 1 mg, administered: 04/21/2016 12:43:00 PM IV NS IV Fluids bolus 0, then 1000 mL/hr, administered: 04/21/2016 12:44:00 PM Dilaudid [IVP] IVP 1 mg, administered: 04/21/2016 2:33:00 PM The following Medications were prescribed to the patient: None.
--- NOTE | 2016-04-21 16:33 | ED MED RECONCILIATION SUMMARY ---
Patient: SANTIAGO OLIVEIRA Medication Reconciliation Report [facility] VisitID: [id number] [address] [place] [address] 20y, M Registration Date/Time: 04/21/2016 Weight: 61.2 kg Height/Length: 70 in. BMI: 19.4 ALLERGIES: No Known Drug Allergy The patient's Home Medications are listed below: THE FOLLOWING MEDICATIONS NEED TO BE RECONCILED: Folic Acid Oral Hydroxyurea Oral The source(s) of the original Home Medication information: patient The following Medications were given to the patient in the Emergency Department: IV NS IV Fluids bolus 0, then 1000 mL/hr, administered: 04/21/2016 7:26:00 AM Dilaudid [IVP] IVP 1 mg, administered: 04/21/2016 7:27:00 AM Zofran [IVP] IVP 4 mg, administered: 04/21/2016 7:27:00 AM Dilaudid [IVP] IVP 0.5 mg, administered: 04/21/2016 7:51:00 AM Dilaudid [IVP] IVP 0.5 mg, administered: 04/21/2016 8:12:00 AM Toradol [IVP] IVP 30 mg, administered: 04/21/2016 8:37:00 AM Dilaudid [IVP] IVP 0.5 mg, administered: 04/21/2016 9:00:00 AM IV NS IV Fluids bolus 0, then 500 mL/hr, administered: 04/21/2016 9:07:00 AM Dilaudid [IVP] IVP 0.5 mg, administered: 04/21/2016 9:37:00 AM Dilaudid [IVP] IVP 0.5 mg, administered: 04/21/2016 10:02:00 AM Dilaudid [IVP] IVP 0.5 mg, administered: 04/21/2016 10:15:00 AM Dilaudid [IVP] IVP 1 mg, administered: 04/21/2016 11:58:00 AM Dilaudid [IVP] IVP 1 mg, administered: 04/21/2016 12:43:00 PM IV NS IV Fluids bolus 0, then 1000 mL/hr, administered: 04/21/2016 12:44:00 PM Dilaudid [IVP] IVP 1 mg, administered: 04/21/2016 2:33:00 PM The following Medications were prescribed to the patient: None.
--- NOTE | 2016-04-21 16:33 | ED MAR SUMMARY ---
..... Medication Administration Record [facility] [address] [place] [address] Patient: SANTIAGO OLIVEIRA Visit ID: [id number] 20y, M Weight: 61.2 kg Height/Length: 70 in BMI: 19.4 ALLERGIES: No Known Drug Allergy Start 07:04/21/2016 Sourav Sahni R.N., Stop 09:04/21/2016 Moira Mckenna R.N. Medication Administered: IV NS (SALINE), Dose: IV Fluids over 1 hour(s), Rate: 1000 mL/hr, Dispensed: 1000 mL bag, Site: #1 left AC. Medication Ordered: IV NS : initial bolus none -, then 1000 mL/hr for 1h (NOW); Urgent (BAG #1). Given 07:04/21/2016 Sourav Sahni R.N. Medication Administered: DILAUDID [IVP] (HYDROMORPHONE HCL PF), Dose: 1 mg IVP over 2 minute(s), Site: #1 left AC. Medication Ordered: Dilaudid IV 1 mg + 0.5 MG (HIGH ALERT MEDICATION). Given 07:04/21/2016 Sourav Sahni R.N. Medication Administered: ZOFRAN [IVP] (ONDANSETRON HCL), Dose: 4 mg IVP over 2 minute(s), Site: #1 left AC. Medication Ordered: Zofran IV 4 mg (NOW). Given 07:51 04/21/2016 Moira Mckenna R.N. Medication Administered: DILAUDID [IVP] (HYDROMORPHONE HCL PF), Dose: 0.5 mg IVP over 30 second(s), Site: #1 left AC. Medication Ordered: Dilaudid IV 1 mg + 0.5 MG (HIGH ALERT MEDICATION). Given 08:12 04/21/2016 Moira Mckenna R.N. Medication Administered: DILAUDID [IVP] (HYDROMORPHONE HCL PF), Dose: 0.5 mg IVP over 1 minute(s), Site: #1 left AC. Medication Ordered: Dilaudid IV 0.5 mg + 0.5 mg (HIGH ALERT MEDICATION). Given 08:37 04/21/2016 Moira Mckenna R.N. Medication Administered: TORADOL [IVP], Dose: 30 mg IVP over 1 minute(s), Site: #1 left AC. Medication Ordered: Toradol IV 30 mg (NOW). Given 09:00 04/21/2016 Moira Mckenna R.N. Medication Administered: DILAUDID [IVP] (HYDROMORPHONE HCL PF), Dose: 0.5 mg IVP over 1 minute(s), Site: #1 left AC. Medication Ordered: Dilaudid IV 0.5 mg + 0.5 mg (HIGH ALERT MEDICATION). Start 09:07 04/21/2016 Moira Mckenna R.N., Stop 11:24 04/21/2016 Sourav Sahni R.N. Medication Administered: IV NS (SALINE), Dose: IV Fluids over 2 hour(s), Rate: 500 mL/hr, Dispensed: 1000 mL bag, Site: #1 left AC. Medication Ordered: IV NS : initial bolus none -, then 500 mL/hr for 2h (NOW); Urgent. Given 09:37 04/21/2016 Moira Mckenna R.N. Medication Administered: DILAUDID [IVP] (HYDROMORPHONE HCL PF), Dose: 0.5 mg IVP over 1 minute(s), Site: #1 left AC. Medication Ordered: Dilaudid IV 0.5 mg (May repeat every 15 minutes for a total of 1.5 mg). Given 10:02 04/21/2016 Moira Mckenna R.N. Medication Administered: DILAUDID [IVP] (HYDROMORPHONE HCL PF), Dose: 0.5 mg IVP over 1 minute(s), Site: #1 left AC. Medication Ordered: Dilaudid IV 0.5 mg (May repeat every 15 minutes for a total of 1.5 mg). Given 10:15 04/21/2016 Moira Mckenna R.N. Medication Administered: DILAUDID [IVP] (HYDROMORPHONE HCL PF), Dose: 0.5 mg IVP over 1 minute(s), Site: #1 left AC. Medication Ordered: Dilaudid IV 0.5 mg (May repeat every 15 minutes for a total of 1.5 mg). Given 11:58 04/21/2016 Sourav Sahni R.N. Medication Administered: DILAUDID [IVP] (HYDROMORPHONE HCL PF), Dose: 1 mg IVP over 2 minute(s), Site: #1 left AC. Medication Ordered: Dilaudid IV 1 mg (HIGH ALERT MEDICATION, NOW). Given 12:43 04/21/2016 Sourav Sahni R.N. Medication Administered: DILAUDID [IVP] (HYDROMORPHONE HCL PF), Dose: 1 mg IVP over 2 minute(s), Site: #1 left AC. Medication Ordered: Dilaudid IV 1 mg (HIGH ALERT MEDICATION, NOW). Start 12:44 04/21/2016 Sourav Sahni R.N., Stop 13:47 04/21/2016 Sourav Sahni R.N. Medication Administered: IV NS (SALINE), Dose: IV Fluids over 1 hour(s), Rate: 1000 mL/hr, Dispensed: 1000 mL bag, Site: #1 left AC. Medication Ordered: IV NS : initial bolus none -, then 1000 mL/hr for X1 (NOW); Tor. Given 14:33 04/21/2016 Moira Mckenna R.N. Medication Administered: DILAUDID [IVP] (HYDROMORPHONE HCL PF), Dose: 1 mg IVP over 2 minute(s), Site: #1 left AC. Medication Ordered: Dilaudid IV 1 mg (NOW).
[2016-04-21 18:09] VITALS: BP 134/93
[2016-04-21 22:21] VITALS: BP 135/77
--- NOTE | 2016-04-22 02:01 | HISTORY AND PHYSICAL ---
ADMITTED: 04/21/2016 CHIEF COMPLAINT: 1. Abdominal pain HISTORY OF PRESENT ILLNESS: This is a 20-year-old male with sickle cell disease, presenting to the emergency department initially 2 days ago with severe right- sided upper back and neck pain, radiating into his right side and down his leg. The emergency department gave him pain medications and he said he was much better and then sent him home with instructions to follow up with his primary care provider the following day. The patient then returned to the emergency department with worsening pain today in his bilateral legs and right flank. He states that this is very consistent with a sickle cell crisis. Usually when he initially gets these symptoms he will take Tylenol and drink plenty of fluids. He also does have Vicodin from his primary care provider; however, he did run out because he missed his appointment as he was in the emergency department getting seen. MEDICAL/SURGICAL HISTORY: Past medical history: Sickle cell disease. He states that previously he had maybe 6 admits before he moved back to [place] from [place]; however, over the past year he has had a lot of problems getting established with primary care, and coordinating with hematology, which has resulted in 20 or more admits. Past surgical history: None. PCP: Dr. Lalo Chandler at the [facility] MEDICATIONS: 1. Hydroxyurea 1000 mg p.o. daily. 2. Folic acid 400 mg p.o. daily. 3. Vicodin. ALLERGIES: 1. NONE. SOCIAL HISTORY: He lives with his parents, 1 sister and 1 brother. He does also have an older sister, however, she is in college. FAMILY HISTORY: Mother with type 2 diabetes, hypertension, sickle cell trait. Father with sickle cell trait, brother with sickle cell disease. REVIEW OF SYSTEMS: PHYSICAL EXAMINATION: VITAL SIGNS: Stable. GENERAL: This is a well-appearing, but uncomfortable male sitting in bed in [id number] distress secondary to abdominal pain. HEENT: Pupils are equal, round, and reactive to light with accommodation bilaterally. Extraocular muscles are intact bilaterally. Oropharynx is moist without exudates. Trachea is midline. NECK: There is no JVD. HEART: S1, S2, regular rate and rhythm. There is a 2/6 systolic murmur increased at the base. LUNGS: Clear to auscultation bilaterally. ABDOMEN: Soft, nontender, nondistended without hepatosplenomegaly or masses. Bowel sounds are active. EXTREMITIES: There is no peripheral edema. LAB/IMAGING: Laboratories: White blood cell count of 14.2, hemoglobin of 8.4, hematocrit of 25.5, platelets of 377,000. Sodium of 139, potassium 3.6, chloride 107, BUN of 25, bicarb is 25, BUN of 6, creatinine 0.8, glucose of 104, calcium of 7.9. Total bilirubin at 1.5, AST of 41, ALT of 24, alk phos of 83, total protein of 7.0 and albumin of 4.1. Other studies: Chest x-ray shows chronic scarring, but no acute changes. EKG: Shows sinus rhythm at 64 beats per minute and a QTc of 433. IMPRESSION: 1. This is a 20-year-old male with sickle cell disease with a recurrent sickle cell crisis, requiring admission for pain control and IV fluids. PLAN: 1. The patient will continue on a large amount of IV fluids and pain medications. His hemoglobin and hematocrit is approximately where it usually is, so I will not do a blood transfusion at this time; however, if patient is not improving overnight one should consider a blood transfusion in the morning. 2. Prophylaxis: Deep venous thrombosis prophylaxis with Lovenox. 3. CODE STATUS: FULL CODE.
[2016-04-22 02:02] VITALS: BP 151/63
[2016-04-22 07:40] VITALS: BP 131/80
--- NOTE | 2016-04-22 09:42 | Progress Note ---
Subjective General Patient admited for sickle cell crises. Last attack was approximately 3 months ago Less pain n neck and back afebrile no shortness of breath No nausea or vomiting Physical Exam Vital Signs / I&Os Vital Signs Date Time Temp Pulse Resp B/P Pulse O2 O2 Flow FiO2 Ox Delivery Rate 04/22 0919 2.0 04/22 0740 98.6 108 19 131/80 97 Room Air 2.0 04/22 0208 94 2.0 04/22 0202 99.9 108 18 151/63 93 Room Air 04/22 0134 2.0 04/22 0115 85 13 98 2.0 04/21 2221 98.8 96 18 135/77 91 Room Air 04/21 1915 94 18 100 2.0 04/21 1809 98.6 89 16 134/93 100 Room Air 04/21 1557 2.0 04/21 1546 98.2 73 16 148/96 96 Room Air I&O 04/22 0000 04/21 1600 04/21 0800 Intake Total 0 Output Total 650 Balance -650 0 General Appearance Alert, Oriented X3, Cooperative HEENT Normal exam, Moist mucous membranes Lungs Clear to auscultation Cardiovascular Regular rate and rhythm, Normal S1 and S2, No murmurs, gallops, rubs Abdomen Soft, No tenderness, No guarding Extremities No cyanosis, No edema, Verna's sign negative Neurological No lateralizing signs Psych/Mental Status Mental status normal LAB Results Laboratory Tests 04/22 0539 Chemistry Plasma Sodium (136 - 145 mmol/L) 139 Plasma Potassium (3.5 - 5.1 mmol/L) 3.6 Plasma Chloride (98 - 107 mmol/L) 102 CO2 (Enzymatic) (21 - 32 mmol/L) 26 BUN (7 - 18 mg/dL) 5 Creatinine (0.6 - 1.3 mg/dL) 0.6 Est GFR ( Amer) (mL/min) >60 Est GFR (Non-Af Amer) (mL/min) >60 Glucose (70 - 110 mg/dL) 99 Plasma Calcium (8.5 - 10.1 mg/dL) 8.3 Hematology WBC (4.5 - 11.5 K/uL) 16.9 Corrected WBC (auto) (K/uL) 12.0 RBC (4.50 - 5.90 M/uL) 2.62 Hgb (13.5 - 17.5 gm/dL) 8.2 Hct (41.0 - 53.0 %) 24.8 MCV (80 - 100 fL) 95 MCH (26 - 34 pg) 31 RDW (11.6 - 14.8 %) 23.6 Neut % (Auto) (50 - 75 %) 61 Lymph % (Auto) (25 - 40 %) 15 Nelson % (Auto) (3 - 14 %) 10 Eos % (Auto) (0 - 4 %) 0 Baso % (Auto) (0 - 2 %) 0 Band Neutrophils % (0 - 8 %) 10 Metamyelocytes % (0 - 1 %) 4 Myelocytes (0 - 1 %) 0 Nucleated RBCs (0 - 1) 41 Other Cell Type 0 Plt Count, EDTA (150 - 400 K/uL) 229 RBC Morphology 1+ SICKLE CELL Polychromasia RARE Anisocytosis (manual) 3+ Target Cells 2+ Schistocytes RARE PUBS MCHC (31 - 37 g/dL) 33 Assessment and Plan Problem List 1. Acute sickle cell crisis Plan Continue [employer] pump. patient willing to try to decrease basla rate later today and transition to oral anlagesics continue supplemental oxygen 2. Sickle cell disease Plan hct stable Patient has leukocytosis, but no signs of active infection. Leukocytosis may be reactive. will recheck in am check for influenza. resume hydroxurea E&M Codes Rounding: Inpt-Moderate/[id number]
[2016-04-22 11:15] VITALS: BP 139/81
[2016-04-22 14:45] VITALS: BP 141/97
[2016-04-22 18:40] VITALS: BP 151/84
[2016-04-22 22:26] VITALS: BP 148/71
[2016-04-23 02:27] VITALS: BP 132/51
[2016-04-23 06:20] VITALS: BP 140/76
--- NOTE | 2016-04-23 07:25 | Progress Note ---
Subjective General Patient with fevers yesterday. Pain improving. 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 No nausea/vomitting. no diarrhea. + constipation. No dysuria, urgency. + cough, but no SOB. Physical Exam Vital Signs / I&Os Vital Signs Date Time Temp Pulse Resp B/P Pulse O2 O2 Flow FiO2 Ox Delivery Rate 04/23 0620 38.3 110 18 140/76 95 Room Air 04/23 0419 37.6 04/23 0227 38.9 120 20 132/51 97 Nasal 2.5 Cannula 04/23 0000 2.5 04/22 2226 38.4 99 20 148/71 100 Nasal 2.5 Cannula 04/22 1840 38.3 106 20 151/84 94 Nasal 2.5 Cannula 04/22 1615 Nasal 2.5 Cannula 04/22 1445 38.1 109 20 141/97 98 Room Air 04/22 1115 38.0 107 20 139/81 97 Room Air 04/22 0919 2.0 04/22 0740 37.0 108 19 131/80 97 Room Air 2.0 I&O 04/23 0000 04/22 1600 04/22 0800 Intake Total 2058 2382 2906 Output Total 8855 296 7618 Balance 733 1782 1756 General Appearance Alert, Oriented X3, Cooperative, No acute distress Lungs Clear to auscultation, Normal air movement Cardiovascular Regular rate and rhythm, Normal S1 and S2, No murmurs, gallops, rubs Abdomen Normal bowel sounds, Soft, No tenderness Extremities No edema Skin No Rashes Assessment and Plan Problem List 1. Sickle cell disease Plan On hydroxyurea. 2. Acute sickle cell crisis Plan Pain improving. H/H slightly decreased, but not at usual transfusion level. Will consult with hematology. 3. Fever Plan Unknown origin. labs (acute hep panel, blood cultures x2, lactic acid, procalcitonin, UA/UC) and cxr ordered today. 4. LFT elevation Plan Chronic hep panel ordered. 5. Constipation Plan Started scheduled colace. 6. Hyperbilirubinemia Plan Worsening. Labs ordered.
--- NOTE | 2016-04-23 07:25 | Progress Note ---
Subjective General Patient with fevers yesterday. Pain improving. 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 No nausea/vomitting. no diarrhea. + constipation. No dysuria, urgency. + cough, but no SOB. Physical Exam Vital Signs / I&Os Vital Signs Date Time Temp Pulse Resp B/P Pulse O2 O2 Flow FiO2 Ox Delivery Rate 04/23 0620 38.3 110 18 140/76 95 Room Air 04/23 0419 37.6 04/23 0227 38.9 120 20 132/51 97 Nasal 2.5 Cannula 04/23 0000 2.5 04/22 2226 38.4 99 20 148/71 100 Nasal 2.5 Cannula 04/22 1840 38.3 106 20 151/84 94 Nasal 2.5 Cannula 04/22 1615 Nasal 2.5 Cannula 04/22 1445 38.1 109 20 141/97 98 Room Air 04/22 1115 38.0 107 20 139/81 97 Room Air 04/22 0919 2.0 04/22 0740 37.0 108 19 131/80 97 Room Air 2.0 I&O 04/23 0000 04/22 1600 04/22 0800 Intake Total 2058 2382 2906 Output Total 2408 553 3682 Balance 733 1782 1756 General Appearance Alert, Oriented X3, Cooperative, No acute distress Lungs Clear to auscultation, Normal air movement Cardiovascular Regular rate and rhythm, Normal S1 and S2, No murmurs, gallops, rubs Abdomen Normal bowel sounds, Soft, No tenderness Extremities No edema Skin No Rashes Assessment and Plan Problem List 1. Sickle cell disease Plan On hydroxyurea. 2. Acute sickle cell crisis Plan Pain improving. H/H slightly decreased, but not at usual transfusion level. Will consult with hematology. 3. Fever Plan Unknown origin. labs (acute hep panel, blood cultures x2, lactic acid, procalcitonin, UA/UC) and cxr ordered today. 4. LFT elevation Plan Chronic hep panel ordered. 5. Constipation Plan Started scheduled colace. 6. Hyperbilirubinemia Plan Worsening. Labs ordered.
--- NOTE | 2016-04-23 08:17 | DIAGNOSTIC IMAGING REPORT ---
PROCEDURE: XR CHEST 2 VIEW INDICATION: FEVER OF UNKNOWN ORIGIN, sickle cell. TECHNIQUE: PA and lateral view. COMPARISON: Chest x-ray 04/21/2016 FINDINGS: Left basilar pleural parenchymal scarring. Left midlung granulomas. No evidence of pneumonia or effusion. Cardiovascular structures are normal. Bony thorax is unremarkable. IMPRESSION: 1. No acute changes 2. Left basilar pleural parenchymal scarring
[2016-04-23 11:07] VITALS: BP 128/66
[2016-04-23 14:29] VITALS: BP 137/80
[2016-04-23 18:56] VITALS: BP 139/66
--- NOTE | 2016-04-23 19:39 | DIAGNOSTIC IMAGING REPORT ---
PROCEDURE: XR CHEST 2 VIEW INDICATION: HIGH TEMP AT 101.6 TECHNIQUE: PA and lateral view. COMPARISON: Chest x-ray 04/23/2016 at 8003 FINDINGS: Left basilar pleural parenchymal scarring. No infiltrates Cardiovascular structures are normal. Bony thorax is unremarkable. IMPRESSION: 1. No acute changes 2. Results called to the floor
[2016-04-23 22:40] VITALS: BP 127/63
[2016-04-24] VITALS (23 sets, daily range): BP systolic 105–133; BP diastolic 57–90
--- NOTE | 2016-04-24 12:25 | Progress Note ---
Subjective General Note Date: April 24, 2016 Admission Date: April 22, 2016 Hospital Day: 3 PCP: Lalo Chandler M.D. Status: Inpatient Advanced Directive: FULL CODE Room: 205 Brief History: The patient is a 20-year-old black male with a history of sickle cell disease who presented to [facility] emergency department on the day of admission secondary to complaints of abdominal leg pain. ER evaluation was consistent with sickle cell crisis. Secondary to the above, the patient was admitted by Alesha Joy for further evaluation and treatment. For other history present illness, past medical history, family history, social history, review of systems, and admission physical examination please see the patient's history and physical examination and ER visit note in the patient's medical record. Subjective: The patient states she is doing significantly better today. Pain is improved. No other specific complaints at this time. Patient requests: None Medications and Allergies Medications Current Medications Sig/Cornel Start time Last Medication Dose Route Stop Time Status Admin Sodium Chloride 250 ML .[FOR TRANSFUSION] 04/24 1030 CAN IV Oxycodone HCl 10 MG Q4HR 04/24 1000 AC 04/24 PO 0918 Sodium Chloride 250 ML .TRANSFUSION 04/24 0815 AC IV 04/24 2200 Senna See Dose Q24HR PRN 04/24 0245 AC 04/24 Insts (1) PO 0253 Ceftriaxone Sodium/ 50 ML Q24HR 04/23 1400 AC 04/24 Dextrose IV 0918 Docusate Sodium 100 MG BID 04/23 0900 AC 04/24 PO 0918 Senna 1 TAB BID 04/23 0900 AC 04/24 PO 0918 Ondansetron HCl 4 MG Q6H PRN 04/23 0045 AC IV Acetaminophen 650 MG Q6H PRN 04/23 0030 AC 04/24 PO 1041 Diphenhydramine HCl 25 MG Q6HR PRN 04/22 1830 AC 04/23 PO 0327 Polyethylene Glycol 17 GM DAILY 04/22 1700 AC 04/24 PO 0918 Clarify Med Order See Dose ASDIRECTED 04/22 1430 AC Insts (2) PO Patient Own See Dose DAILY 04/22 1400 AC 04/24 Medication Insts (3) PO 0923 Hydromorphone HCl See Dose .SEE DOSE INSTRUCT.. 04/22 1330 AC 04/24 Insts (4) IV 0405 Folic Acid 1 MG DAILY 04/22 1000 AC 04/24 PO 0918 Enoxaparin Sodium 40 MG DAILY 04/22 0900 AC 04/24 SC 0918 Sodium Chloride 1,000 ML ASDIRECTED 04/21 1430 04/24 IV 0918 Dose Instructions: (1)Senna: 1-2 (2)Clarify Med Order: PT MEDS IN PSB (OMNICELL) (3)Patient Own Medication: HYDROXYUREA 500MG PO DAILY (4)Hydromorphone HCl: SENIOR TELECOMMUNICATIONS SPECIALIST BOLUS = NONE DOSE = 0.3 MG LOCKOUT = 20 MIN 4 HR LIMIT = 11.2MG CONTINUOUS = 0MG/HR Allergies Coded Allergies: No Known Drug Allergy (09/24/15) Physical Exam Vital Signs / I&Os Vital Signs Date Time Temp Pulse Resp B/P Pulse O2 O2 Flow FiO2 Ox Delivery Rate 04/24 1158 99.9 107 20 113/63 97 04/24 1136 99.5 102 18 119/65 100 Nasal 2.5 Cannula 04/24 1129 99.5 04/24 1115 101.1 04/24 1045 100.4 04/24 0715 99.5 82 20 114/73 100 Nasal 2.5 Cannula 04/24 0340 99.7 04/24 0217 102.6 124 18 131/64 98 Nasal 2.5 Cannula 04/24 0150 Nasal 2.5 Cannula 04/23 2240 100.0 87 18 127/63 100 Nasal 2.5 Cannula 04/23 1856 101.7 108 18 139/66 95 Room Air 04/23 1630 Room Air 04/23 1429 99.3 106 18 137/80 95 Room Air I&O 04/24 0000 04/23 1600 04/23 0800 Intake Total 3223 555 2009 Output Total 0357 875 5361 Balance 1448 -95 660 General Appearance Alert, Oriented X3, Cooperative, No acute distress Lungs Clear to auscultation, Normal air movement Cardiovascular Regular rate and rhythm, Normal S1 and S2 Abdomen Normal bowel sounds, Soft, No tenderness Extremities No cyanosis, No clubbing, No edema Neurological Cranial nerves intact, Strength 5/5 x4 ext's, No lateralizing signs Psych/Mental Status Mental status normal, Mood normal LAB Results Laboratory Tests 04/24 04/24 04/23 0510 0510 1845 Chemistry Plasma Sodium (136 - 145 mmol/L) 140 Plasma Potassium (3.5 - 5.1 mmol/L) 3.7 Plasma Chloride (98 - 107 mmol/L) 105 CO2 (Enzymatic) (21 - 32 mmol/L) 27 BUN (7 - 18 mg/dL) 9 Creatinine (0.6 - 1.3 mg/dL) 0.6 Est GFR ( Amer) (mL/min) >60 Est GFR (Non-Af Amer) (mL/min) >60 Glucose (70 - 110 mg/dL) 125 Plasma Calcium (8.5 - 10.1 mg/dL) 8.0 Total Bilirubin (0.0 - 1.0 mg/dL) 2.0 AST (15 - 37 U/L) 58 ALT (12 - 78 U/L) 27 Alkaline Phosphatase (46 - 116 U/L) 125 Total Protein (6.4 - 8.2 g/dL) 6.3 Albumin (3.3 - 5.0 g/dL) 2.8 Procalcitonin (0 - 0.5 ng/mL) 1.5 1.6 Hematology WBC (4.5 - 11.5 K/uL) 14.5 RBC (4.50 - 5.90 M/uL) 2.11 Hgb (13.5 - 17.5 gm/dL) 6.2 Hct (41.0 - 53.0 %) 19.5 MCV (80 - 100 fL) 92 MCH (26 - 34 pg) 30 RDW (11.6 - 14.8 %) 22.0 Neut % (Auto) (50 - 75 %) 72 Lymph % (Auto) (25 - 40 %) 14 [place] % (Auto) (3 - 14 %) 2 Eos % (Auto) (0 - 4 %) 0 Baso % (Auto) (0 - 2 %) 0 Band Neutrophils % (0 - 8 %) 12 Metamyelocytes % (0 - 1 %) 0 Myelocytes (0 - 1 %) 0 Other Cell Type 0 Plt Count, EDTA (150 - 400 K/uL) 156 RBC Morphology (37046 A) MANY NRBC'S Hypochromic-Microcytic 2+ Poikilocytosis (manual 2+ Anisocytosis (manual) 2+ Acanthocytes (Spur) 1+ Schistocytes 1+ PUBS MCHC (31 - 37 g/dL) 32 04/23 1845 Chemistry C-Reactive Protein (0.0 - 0.9 mg/dL) 34.4 Hematology WBC (4.5 - 11.5 K/uL) 15.8 Corrected WBC (auto) (K/uL) 11.1 RBC (4.50 - 5.90 M/uL) 2.46 Hgb (13.5 - 17.5 gm/dL) 7.3 Hct (41.0 - 53.0 %) 22.4 MCV (80 - 100 fL) 91 MCH (26 - 34 pg) 30 RDW (11.6 - 14.8 %) 22.3 Neut % (Auto) (50 - 75 %) 85 Lymph % (Auto) (25 - 40 %) 3 [place] % (Auto) (3 - 14 %) 6 Eos % (Auto) (0 - 4 %) 0 Baso % (Auto) (0 - 2 %) 0 Band Neutrophils % (0 - 8 %) 6 Metamyelocytes % (0 - 1 %) 0 Myelocytes (0 - 1 %) 0 Nucleated RBCs (0 - 1) 42 Other Cell Type 0 Plt Count, EDTA (150 - 400 K/uL) 179 RBC Morphology SICKLE CELLS 3+ Polychromasia 3+ Hypochromic-Microcytic 2+ Anisocytosis (manual) 3+ Target Cells 2+ Tear Drop Cells 2+ Kelsy Cells 1+ PUBS MCHC (31 - 37 g/dL) 33 Assessment and Plan Problem List 1. Fever Plan -Patient with low-grade fever -No obvious source of infection -Repeat chest x-ray -Repeat urinalysis -Blood culture 2 -Continue Rocephin -Monitor 2. Acute sickle cell crisis Plan -Patient with findings of sickle cell crisis with significant anemia -Transfuse to hematocrit greater than 30 -Monitor Current status: Fair, improved Anticipated discharge date: Anticipated discharge 1-2 days Anticipated discharge placement: Home Patient care time: Time spent in chart review, patient interview, physical exam, CPOE, and care documentation: 25 minutes Visit to patient today: 1 Complexity of care: Moderate E&M Codes Rounding: Inpt-Moderate/[id number]
[2016-04-25 04:02] VITALS: BP 111/71
[2016-04-25 06:34] VITALS: BP 124/72
--- NOTE | 2016-04-25 07:30 | Progress Note ---
Subjective General Note Date: April 25, 2016 Admission Date: April 22, 2016 Hospital Day: 4 PCP: Lalo Chandler M.D. Status: Inpatient Advanced Directive: FULL CODE Room: 205 Brief History: The patient is a 20-year-old black male with a history of sickle cell disease who presented to [facility] emergency department on the day of admission secondary to complaints of abdominal leg pain. ER evaluation was consistent with sickle cell crisis. Secondary to the above, the patient was admitted by Alesha Joy for further evaluation and treatment. For other history present illness, past medical history, family history, social history, review of systems, and admission physical examination please see the patient's history and physical examination and ER visit note in the patient's medical record. Subjective: The patient states she is doing significantly better today. Pain is improved. No other specific complaints at this time. Patient states he is ready for discharge. Patient requests: None [] Medications and Allergies Medications Current Medications Sig/Cornel Start time Last Medication Dose Route Stop Time Status Admin Acetaminophen 650 MG Q4H PRN 04/24 2200 AC 04/25 PO 0414 Sodium Chloride 250 ML .[FOR TRANSFUSION] 04/24 1030 CAN IV Oxycodone HCl 10 MG Q4HR 04/24 1000 AC 04/25 PO 0557 Senna See Dose Q24HR PRN 04/24 0245 AC 04/24 Insts (1) PO 0253 Ceftriaxone Sodium/ 50 ML Q24HR 04/23 1400 AC 04/24 Dextrose IV 0918 Docusate Sodium 100 MG BID 04/23 0900 AC 04/24 PO 2225 Senna 1 TAB BID 04/23 0900 AC 04/24 PO 2226 Ondansetron HCl 4 MG Q6H PRN 04/23 0045 AC IV Diphenhydramine HCl 25 MG Q6HR PRN 04/22 1830 AC 04/25 PO 0600 Polyethylene Glycol 17 GM DAILY 04/22 1700 AC 04/24 PO 0918 Clarify Med Order See Dose ASDIRECTED 04/22 1430 AC Insts (2) PO Patient Own See Dose DAILY 04/22 1400 AC 04/24 Medication Insts (3) PO 0923 Hydromorphone HCl See Dose .SEE DOSE INSTRUCT.. 04/22 1330 AC 04/24 Insts (4) IV 2316 Folic Acid 1 MG DAILY 04/22 1000 AC 04/24 PO 0918 Enoxaparin Sodium 40 MG DAILY 04/22 0900 AC 04/24 SC 0918 Sodium Chloride 1,000 ML ASDIRECTED 04/21 1430 AC 04/25 IV 0635 Dose Instructions: (1)Senna: 1-2 (2)Clarify Med Order: PT MEDS IN PSB (OMNICELL) (3)Patient Own Medication: HYDROXYUREA 500MG PO DAILY (4)Hydromorphone HCl: ACCESS SPECIALIST BOLUS = NONE DOSE = 0.3 MG LOCKOUT = 20 MIN 4 HR LIMIT = 11.2MG CONTINUOUS = 0MG/HR Allergies Coded Allergies: No Known Drug Allergy (09/24/15) Physical Exam Vital Signs / I&Os Vital Signs Date Time Temp Pulse Resp B/P Pulse O2 O2 Flow FiO2 Ox Delivery Rate 04/25 0634 98.4 84 18 124/72 99 Nasal Cannula 04/25 0402 99.3 77 14 111/71 98 Nasal Cannula 04/24 2241 99.0 89 14 129/76 98 04/24 2159 99.1 65 14 111/66 98 04/24 2120 73 14 120/68 98 04/24 2020 80 16 122/70 97 04/24 2002 99.0 82 16 122/70 97 04/24 1929 99.0 82 16 122/70 97 04/24 1823 101.1 108 16 123/69 96 04/24 1747 102.6 61 20 107/57 97 04/24 1719 99.9 95 16 108/61 95 04/24 1700 102.6 102 20 112/59 100 04/24 1642 100.0 107 20 119/63 96 04/24 1620 99.7 94 16 133/66 100 04/24 1546 100.0 96 20 122/90 96 04/24 1511 100.0 95 20 118/69 98 04/24 1422 99.1 103 20 115/73 100 04/24 1407 99.0 96 20 121/79 100 04/24 1335 99.7 96 20 115/63 99 Nasal Cannula 04/24 1254 99.3 96 20 123/71 97 04/24 1232 99.5 102 20 105/59 98 04/24 1158 99.9 107 20 113/63 97 04/24 1136 99.5 102 18 119/65 100 Nasal 2.5 Cannula 04/24 1129 99.5 04/24 1115 101.1 04/24 1045 100.4 04/24 0833 2.0 I&O 04/25 0000 04/24 1600 04/24 0800 Intake Total 1578 2650 1577 Output Total 1075 600 650 Balance 503 2050 927 General Appearance Alert, Oriented X3, Cooperative, No acute distress Lungs Clear to auscultation Cardiovascular Regular rate and rhythm, Normal S1 and S2 Abdomen Normal bowel sounds, Soft, No tenderness, No guarding Extremities No cyanosis, No clubbing, No edema Neurological Cranial nerves intact, No lateralizing signs Psych/Mental Status Mental status normal, Mood normal LAB Results Laboratory Tests 04/25 04/24 0539 1800 Hematology WBC (4.5 - 11.5 K/uL) 12.7 RBC (4.50 - 5.90 M/uL) 3.38 Hgb (13.5 - 17.5 gm/dL) 9.5 Cancelled Hct (41.0 - 53.0 %) 30.3 Cancelled MCV (80 - 100 fL) 90 MCH (26 - 34 pg) 28 RDW (11.6 - 14.8 %) 19.2 Gran % TNP Neut % (Auto) (50 - 75 %) 66 Lymph % (Auto) (25 - 40 %) 14 [place] % (Auto) (3 - 14 %) 3 Eos % (Auto) (0 - 4 %) 1 Baso % (Auto) (0 - 2 %) 0 Band Neutrophils % (0 - 8 %) 16 Metamyelocytes % (0 - 1 %) 0 Myelocytes (0 - 1 %) 0 Other Cell Type 0 Plt Count, EDTA (150 - 400 K/uL) 163 RBC Morphology (64718 A) MANY NRBC'S Polychromasia 1+ Hypochromic-Microcytic 2+ Poikilocytosis (manual 2+ Anisocytosis (manual) 2+ Target Cells 1+ Stomatocytes 1+ Schistocytes 1+ PUBS MCHC (31 - 37 g/dL) 32 Assessment and Plan Problem List 1. Acute sickle cell crisis Plan -Resolved -Discharge today -See discharge Summary/instructions 2. Hyperbilirubinemia Plan -Improved -Most likely secondary to hemolysis -Repeat LFTs in 2 weeks with PCP 3. LFT elevation Plan -Mild -Outpatient follow-up with PCP with repeat LFTs in 2 weeks. 4. Fever Plan -Findings of strep pharyngitis -Keflex 500 mg by mouth 3 times a day -Outpatient follow-up with PCP 5. Anemia Status Chronic Onset Date Unknown Plan -Improved -Status post transfusion 4 units packed RBCs -Hematocrit greater than 30 on discharge Current status: Fair, improved Anticipated discharge date: Today Anticipated discharge placement: Home Patient care time: Time spent in chart review, patient interview, physical exam, CPOE, and care documentation: Greater than 30 minutes Visit to patient today: 1 Complexity of care: Moderate E&M Codes Discharge: Inpt >30 min spent/[id number]
--- NOTE | 2016-04-25 11:27 | Discharge Summary ---
Discharge Summary Report Admit Date 04/22/16 Discharge Date 04/25/16 Admission Diagnosis 1. Sickle cell crisis 2. Anemia Discharge Diagnosis 1. Sickle cell crisis 2. Anemia 3. Strep pharyngitis 4. LFT abnormalities Brief History The patient is a 20-year-old black male with a history of sickle cell disease who presented to [facility] emergency department on the day of admission secondary to complaints of abdominal leg pain. ER evaluation was consistent with sickle cell crisis. Secondary to the above, the patient was admitted by Alesha Joy M.D. for further evaluation and treatment. For other history present illness, past medical history, family history, social history, review of systems, and admission physical examination please see the patient's history and physical examination and ER visit note in the patient's medical record. Hospital Course The following problems and their management were noted during the patient's hospitalization: 1. Sickle cell crisis The patient presented with findings of sickle cell crisis. He was treated with IV fluid therapy, pain medications, and transfusional therapy. His symptoms are dramatically improved at the time of discharge with almost complete resolution of his pain. H&H at the time of discharge was noted to be 9.5/30.3. The patient underwent transfusion of 4 units of packed RBCs during his hospital stay. He will follow-up with his PCP this week for reevaluation. He was discharged on hydroxyurea 1000 mg by mouth daily and folic acid 1 mg by mouth daily 2. Anemia The patient was noted to have history of sickle cell anemia. He required transfusion of 4 units of packed RBCs during his hospital stay. H&H as noted above. Outpatient follow-up with PCP. 3. Strep pharyngitis Patient was noted to have findings of strep pharyngitis during his hospital stay. He was discharged on Keflex 500 mg by mouth 3 times a day. Outpatient follow-up with his PCP. 4. Liver function abnormalities The patient was noted to have liver function abnormalities with hyperbilirubinemia associated with hemolysis. These were mild. Outpatient follow-up with PCP with repeat LFTs in 2 weeks. General Appearance Alert, Oriented X3, Cooperative, No acute distress Lungs Clear to auscultation, Normal air movement Cardiovascular Regular Rate, Normal S1, Normal S2 Abdomen Normal bowel sounds, Soft, No tenderness Neurological Strength at 5/5 X4 ext, Cranial nerves 3-12 NL Psych/Mental Status Mental status NL, Mood NL Lab/Imaging Laboratory Tests 04/25 04/24 0539 1800 Hematology WBC (4.5 - 11.5 K/uL) 12.7 RBC (4.50 - 5.90 M/uL) 3.38 Hgb (13.5 - 17.5 gm/dL) 9.5 Cancelled Hct (41.0 - 53.0 %) 30.3 Cancelled MCV (80 - 100 fL) 90 MCH (26 - 34 pg) 28 RDW (11.6 - 14.8 %) 19.2 Gran % TNP Neut % (Auto) (50 - 75 %) 66 Lymph % (Auto) (25 - 40 %) 14 [place] % (Auto) (3 - 14 %) 3 Eos % (Auto) (0 - 4 %) 1 Baso % (Auto) (0 - 2 %) 0 Band Neutrophils % (0 - 8 %) 16 Metamyelocytes % (0 - 1 %) 0 Myelocytes (0 - 1 %) 0 Other Cell Type 0 Plt Count, EDTA (150 - 400 K/uL) 163 RBC Morphology (71992 A) MANY NRBC'S Polychromasia 1+ Hypochromic-Microcytic 2+ Poikilocytosis (manual 2+ Anisocytosis (manual) 2+ Target Cells 1+ Stomatocytes 1+ Schistocytes 1+ PUBS MCHC (31 - 37 g/dL) 32 Discharge Instructions/Meds For other recommendations regarding discharge diet, activity, followup, and discharge medications please see the patient's discharge instructions. Discharge condition: Fair, improved Greater than 30 min. was spent in the patient's discharge preparation including discharge interview and physical examination, progress note, discharge instructions, and discharge summary The patient was interviewed and examined on the day of discharge. E&M Codes Discharge: Inpt >30 min spent/[id number]
[2016-04-25] MEDS ORDERED: CEFTIN500 MG PO (11:30)
[2016-04-25] MEDS ORDERED: VICODIN HP1 TA1 PO (11:31)
--- NOTE | 2016-04-25 11:33 | Provider's Discharge Care Plan ---
Problem, Goal, Plan Problem List 1. Sickle cell disease Goals: Improve disease control, Prevent disease progress Instructions: Follow up as directed, Take meds as directed
--- NOTE | 2016-04-25 11:33 | Provider's Discharge Care Plan ---
Problem, Goal, Plan Problem List 1. Sickle cell disease Goals: Improve disease control, Prevent disease progress Instructions: Follow up as directed, Take meds as directed
[2016-04-25] MEDS ORDERED: KEFLEX500 M1 PO (12:22)
== END 2016-04-25 14:00 | disposition home or self-care (01) | DRG 812 ==
LOC: ED SRH 07:24 → TRANS SRH 13:44 → ACUTE2 SRH 15:30
PROVIDERS: ADMIT Emergency Medicine
PROC: 30233N1 Transfusion of Nonautologous Red Blood Cells into Peripheral Vein, Percutaneous Approach (ICD-10-PCS; principal; 2016-04-24)
DX: D57.00 Hb-SS disease with crisis, unspecified (principal); J02.0 Streptococcal pharyngitis; R74.8 Abnormal levels of other serum enzymes
CPT/HCPCS: 29230; 29242; 29251; 29263; 83526; 90001; 90004; 90047; 90065; 90074; 90075; 90077; 90078; 90100; 90154; 90155; 90159; 90627; 90977; 91004; 91400; 91544; 91585; 91643; 92031; 92540; 92720; 93004; 93140; 95059; 95140; 99777; 99787

== ENCOUNTER 2016-09-18 08:13 | Observation (INO) | payer SELFPAY ==
[~2016-09-18] VITALS: Ht 177.8 cm; Wt 60.0 kg
[~2016-09-18 08:13] MED LIST changes: +KEFLEX500 M1 PO; +VICODIN HP1 TA1 PO
--- NOTE | 2016-09-18 09:16 | DIAGNOSTIC IMAGING REPORT ---
PROCEDURE: XR CHEST 2 VIEW INDICATION: CHEST PAIN TECHNIQUE: PA and lateral view. COMPARISON: None. FINDINGS: Stable left basilar pleural parenchymal scarring. Lungs are otherwise clear. Cardiovascular structures are normal. Bony thorax is unremarkable. IMPRESSION: 1. No acute changes 2. Left basilar pleural parenchymal scarring
--- NOTE | 2016-09-18 11:19 | ED ORDER SUMMARY ---
..... Patient: SANTIAGO OLIVEIRA OrderSheet [facility] VisitID: [id number] [place] [address] 21y, M Registration Date/Time: 09/18/2016 ORDER SHEET Weight: 61.2 kg (stated) Allergies: No Known Drug Allergy GENERAL ORDERS: Chest 2V Urgent (:09/18/2016 Kanchan AMARO) (Ack 8:33 KHoerner) (8:46 KHoerner) Escalator Operator (Continuous) (:09/18/2016 Kanchan AMARO) (8:34 MWinterer R.N.) Cardiac Panel Stat (09/18/2016 Kanchan AMARO) (Ack 8:33 JOSE RAULoerpeter) (8:34 MWinterer R.N.) CRP Urgent (:09/18/2016 Kanchan AMARO) (Ack 8:33 JOSE RAULoeaida) (8:34 MWinterer R.N.) PCT (Procalcitonin) Urgent (:09/18/2016 Kanchan AMARO) (Ack 8:33 JOSE RAULoerner) (8:34 MWinterer R.N.) Oxygen (2 L/min) (NC) (:09/18/2016 Kanchan AMARO) (8:34 MWinterer R.N.) Pulse oximeter (:09/18/2016 Kanchan AMARO) (8:34 MWinterer R.N.) EKG - ER Stat (:09/18/2016 Kanchan AMARO) (8:33 Carlie) MEDICATION ORDERS: IV FLUIDS: IV NS : initial bolus 1000 mL (1000 mL/hr), then 250 mL/hr for 4h (NOW); Routine (:09/18/2016 Kanchan AMARO) (Ack 8:34 MWinterer R.N.) (8:42 MWinterer R.N.) Dilaudid IV 1 mg (NOW) (:09/18/2016 Kanchan AMARO) (Ack 8:34 MWinterer R.N.) (8:42 MWinterer R.N.) Zofran IV 4 mg (NOW) (08:32 09/18/2016 Kanchan AMARO) (Ack 8:34 MWinterer R.N.) (8:42 MWinterer R.N.) Dilaudid IV 1 mg (HIGH ALERT MEDICATION, NOW) (12:28 09/18/2016 Anastasia AMARO) (Ack 12:35 MWinterer R.N.) (12:38 MWinterer R.N.) ORDER SHEET NOTES: [Electronically signed by Clifford Holt MD (14:12 09/18/2016)] [Electronically signed by Cecilia Awan R.N. (16:59 09/18/2016)] [Electronically locked/signed by Cecilia Awan R.N. (16:59 09/18/2016)]
--- NOTE | 2016-09-18 11:19 | ED CLINICAL REPORT ---
Clinical Report - Physicians/Mid Levels [facility] [address] [place] [address] 09/18/2016 8:15 Patient: SANTIAGO OLIVEIRA Time Seen: 08:27 Sep 18 2016. Arrived- By private vehicle. Historian- patient. HISTORY OF PRESENT ILLNESS Chief Complaint: DYSPNEA and CHEST PAIN and BACK PAIN. This started just prior to arrival today and is still present. It was abrupt in onset and has been constant. The dyspnea is severe. No cough, fever, sweating episodes, chills or calf pain. No foot swelling. He has had chest pain. Similar symptoms previously: Many times. Diagnosis: (sickle cell crisis). REVIEW OF SYSTEMS No chills, fever, sweats, calf pain or cough. No difficulty breathing, pedal edema, palpitations, abdominal pain or constipation. No diarrhea, nausea, vomiting or urinary problems. The patient has had severe joint pain, involving the right knee and left knee. All systems otherwise negative, except as recorded above. PAST HISTORY Pneumonia. Sickle Cell Disease. Sickle Cell Crisis. Problems: Pneumonia. Sickle Cell Disease. Sickle Cell Crisis. Medications: Folic Acid Oral. Hydroxyurea Oral. Allergies: No Known Drug Allergy. SOCIAL HISTORY Never smoker. History of occasional drug use: marijuana. No alcohol use. Residence: [place]. FAMILY HISTORY sickle cell. ADDITIONAL NOTES The nursing notes have been reviewed. PHYSICAL EXAM Vital Signs: 09/18/2016 08:20 BP: 115/72. HR: 64. RR: 20. O2 saturation: 100%. Temp: 98.1 F. Pain level now: 8/10. Have been reviewed. Appearance: Alert. Appears to be in pain. Eyes: Pupils equal, round and reactive to light. Scleral icterus. ENT: Pharynx normal. Neck: Normal inspection. No jugular venous distention. CVS: Normal heart rate and rhythm. Heart sounds normal. Respiratory: No respiratory distress. Breath sounds normal. Abdomen: Soft and nontender. No organomegaly. Back: Normal inspection. No CVA tenderness. Skin: Skin warm and dry. Normal skin color. Normal skin turgor. Extremities: Extremities exhibit normal ROM. No calf tenderness. No lower extremity edema. Neuro: No motor deficit. No sensory deficit. LABS, X-RAYS, AND EKG EKG: Normal sinus rhythm. Normal P waves. Normal MIKE. LVH. Normal axis. Normal ST and T waves. EKG unchanged when compared with prior EKG. (21 Apr 2016). The study has been interpreted contemporaneously. The study has been independently viewed by me. The EKG appears to be a good tracing. Chest X-ray: (IMPRESSION: 1. No acute changes 2. Left basilar pleural parenchymal scarring). The X-rays were interpreted by the radiologist and contemporaneously by me. Laboratory Tests: CBC w Diff: (BRIANA: 09/18/2016 08:20) ( [facility] Final results Test Result Flag Units (Reference) WHITE BLOOD COUNT 13.0 H K/uL (4.5-11.5) RED BLOOD COUNT 3.10 L M/uL (4.50-5.90) HEMOGLOBIN 9.0 L gm/dL (13.5-17.5) HEMATOCRIT 27.1 L % (41.0-53.0) MEAN CELL VOLUME 87 fL (80-100) MEAN CORPUSCULAR HGB 29 pg (26-34) MEAN CORPUSCULAR HGB CONC 33 g/dL (31-37) RED CELL DISTRIBUTION WIDTH 20.8 H % (11.6-14.8) PLATELET COUNT 349 K/uL (150-400) POLY % 34 L % (50-75) BAND % 0 % (0-8) LYMPH 42 H % (25-40) MONO 10 % (3-14) EOSINOPHIL % 8 H % (0-4) BASOPHIL % 2 % (0-2) METAMYELOCYTE % 4 H % (0-1) MYELOCYTE 0 % (0-1) OTHER CELL TYPE 0 RBC MORPHOLOGY 1+ SICKLE CELL POIKILOCYTOSIS 1+ ANISOCYTOSIS 1+ SCHISTOCYTES 1+ TARGET CELLS 1+ [id number]: (BRIANA: 09/18/2016 08:20) ( VagRcvd 09/18/2016 09:37) Final results Test Result Flag Units (Reference) C-REACTIVE PROTEIN 0.4 mg/dL (0.0-0.9) [id number]: (BRIANA: 09/18/2016 08:20) ( MsgRcvd 09/18/2016 10:06) Final results Test Result Flag Units (Reference) PROCALCITONIN < 0.05 ng/mL (0-0.5) PCT Concentration: Interpretation : Risk/option for action PCT <=0.5 ng/mL : Systemic : Low risk forinfection(sepsis): progression to severeis not likely. : systemic infection.Local bacterial : CAUTION-PCT levelsinfection is : below 0.5 ng/mL do notpossible. : exclude an infection,because localizedinfections (withoutsystemic signs) may beassociated with suchlow levels. If PCT ismeasured very earlyafter a bacterialchallenge (usually <6hours), these valuesmay still be low. Inthis case PCT shouldbe re-assessed 6-24hours later. PCT >0.5 and : Systemic infection: Moderate risk for<= 2 ng/mL : (sepsis) is : progression to severepossible, but : systemic infection.other conditions : The patient should beare known to : closely monitoredelevate PCT. : both clinically andby re-assessing PCTwithin 6-24 hours. PCT > 2 ng/mL : Systemic infection: High risk for(sepsis) is likely: progression to severeunless other : systemic infection.causes are known. : PCT >= 10 ng/mL : Important systemic: High likelihood ofinflammatory : severe sepsis orresponse, almost : septic shock.exclusively due to:severe bacterial :sepsis or septic :shock. : CHEM 13 PANEL: (BRIANA: 09/18/2016 08:20) ( MsgRcvd 09/18/2016 09:39) Final results Test Result Flag Units (Reference) GLUCOSE 104 mg/dL (70-110) BUN 7 mg/dL (7-18) CREATININE 0.8 mg/dL (0.6-1.3) Estimated GFR >60 mL/min Estimated GFR- >60 mL/min Note: Persistent reduction over 3 months in eGFR<60 mL/min/1.73 m2 defines CKD. Patients with eGFR values>=60 mL/min/1.73 m2 may also have CKD if evidence ofpersistent proteinuria. Additional information may be foundat www.kidney.org. SODIUM 141 mmol/L (136-145) POTASSIUM 3.4 L mmol/L (3.5-5.1) CHLORIDE 106 mmol/L (98-107) CARBON DIOXIDE 28 mmol/L (21-32) CALCIUM 8.2 L mg/dL (8.5-10.1) TOTAL PROTEIN 6.8 g/dL (6.4-8.2) ALBUMIN 3.9 g/dL (3.3-5.0) BILIRUBIN, TOTAL 2.3 H mg/dL (0.0-1.0) ALKALINE PHOSPHATASE 99 U/L (46-116) AST (SGOT) 19 U/L (15-37) ALT (SGPT) 16 U/L (12-78) CPK 71 U/L (24-260) MAGNESIUM 1.9 mg/dL (1.8-2.4) TROPONIN I <0.05 ng/mL (0.00-1.5) TROPONIN REFERENCE RANGE:<0.1 NEGATIVE0.1-1.5 INDETERMINANT>1.5 POSITIVE . PROGRESS AND PROCEDURES Discussed case with hospitalist, (Radu). Reviewed test results and need for additional work-up. Agreed upon treatment plan, need for patient follow-up and decision to admit. Patient/family counseled. Old medical records reviewed. Disposition: Admitted. Observation. CLINICAL IMPRESSION Sickle cell crisis. (Electronically signed by Clifford Holt MD 09/18/2016 14:12) Addenda for SANTIAGO OLIVEIRA VisitID: [id number] Date: 09/18/2016 09/18/2016 12:45 I gave the nursing sstaff a verbal order that the patient may have Dilaudid 1 mg IV every 15 minutes when necessary for pain to a maximum dose of 5 mg total (Electronically signed by Clifford Holt MD - 09/18/2016 12:45)
--- NOTE | 2016-09-18 11:19 | ED ORDER SUMMARY ---
..... Patient: SANTIAGO OLIVEIRA OrderSheet [facility] VisitID: [id number] [place] [address] 21y, M Registration Date/Time: 09/18/2016 ORDER SHEET Weight: 61.2 kg (stated) Allergies: No Known Drug Allergy GENERAL ORDERS: Chest 2V Urgent (:09/18/2016 Kanchan AMARO) (Ack 8:33 KHoerner) (8:46 KHoerner) Child Caregiver (Continuous) (:09/18/2016 Kanchan AMARO) (8:34 MWinterer R.N.) Cardiac Panel Stat (09/18/2016 Kanchan AMARO) (Ack 8:33 JOSE RAULoerpeter) (8:34 MWinterer R.N.) CRP Urgent (:09/18/2016 Kanchan AMARO) (Ack 8:33 JOSE RAULoeaida) (8:34 MWinterer R.N.) PCT (Procalcitonin) Urgent (:09/18/2016 Kanchan AMARO) (Ack 8:33 JOSE RAULoerner) (8:34 MWinterer R.N.) Oxygen (2 L/min) (NC) (:09/18/2016 Kanchan AMARO) (8:34 MWinterer R.N.) Pulse oximeter (:09/18/2016 Kanchan AMARO) (8:34 MWinterer R.N.) EKG - ER Stat (:09/18/2016 Kanchan AMARO) (8:33 Carlie) MEDICATION ORDERS: IV FLUIDS: IV NS : initial bolus 1000 mL (1000 mL/hr), then 250 mL/hr for 4h (NOW); Routine (:09/18/2016 Kanchan AMARO) (Ack 8:34 MWinterer R.N.) (8:42 MWinterer R.N.) Dilaudid IV 1 mg (NOW) (:09/18/2016 Kanchan AMARO) (Ack 8:34 MWinterer R.N.) (8:42 MWinterer R.N.) Zofran IV 4 mg (NOW) (08:32 09/18/2016 Kanchan AMARO) (Ack 8:34 MWinterer R.N.) (8:42 MWinterer R.N.) Dilaudid IV 1 mg (HIGH ALERT MEDICATION, NOW) (12:28 09/18/2016 Anastasia AMARO) (Ack 12:35 MWinterer R.N.) (12:38 MWinterer R.N.) ORDER SHEET NOTES: [Electronically signed by Clifford Holt MD (14:12 09/18/2016)] [Electronically signed by Cecilia Awan R.N. (16:59 09/18/2016)] [Electronically locked/signed by Cecilia Awan R.N. (16:59 09/18/2016)]
--- NOTE | 2016-09-18 11:19 | ED NURSING NOTES ---
Clinical Report - Nurses [facility] [address] [place] [address] 09/18/2016 8:15 Patient: SANTIAGO OLIVEIRA TRIAGE Acuity: LEVEL 3. Chief Complaint: (Pain sickle cell). Alert. No acute distress. ANGIE COMA SCORE: Angie Coma Scale: 15- eyes open spontaneously (4); best verbal response- oriented x 4 (5); best motor response- obeys commands (6). --08:24 Cecilia Awan R.N. 08:20 09/18/16. BP: 115/72. HR: 64. RR: 20. O2 saturation: 100% on room air. Temp: 98.1 F (oral). Pain level now: 11/11. --08:24 Cecilia Awan R.N. Weight: 61.2 kg stated. Height/Length: 70 inches Per Patient. BMI: 19.4. --08:21 Cecilia Awan R.N. Medications Folic Acid Oral. Hydroxyurea Oral. --08:22 Cecilia Awan R.N. Medication/allergy information source: the patient. --08:24 Cecilia Awan R.N. Allergies No Known Drug Allergy. --08:22 Cecilia Awan R.N. History Arrived by private vehicle. Historian: patient. Accompanied by (dropped off). This started just prior to arrival. Treatment [employer] ARCHITECT: None. SOCIAL HX: Never smoker. History of occasional drug use: marijuana. No alcohol use. FALL RISK ASSESSMENT: Fall risk assessment completed. No fall risk identified. NUTRITIONAL RISK ASSESSMENT: The nutritional risk assessment revealed no deficiencies. FUNCTIONAL ASSESSMENT: Functional assessment: no impairments noted. LEARNING NEEDS ASSESSMENT: The learning needs assessment revealed no barriers. SKIN INTEGRITY ASSESSMENT: Skin integrity risk assessment completed. No skin integrity risk identified. --08:24 Cecilia Awan R.N. PROBLEMS: Pneumonia. Sickle Cell Disease. Sickle Cell Crisis. --08:22 Cecilia Awan R.N. Assessment GENERAL / NEURO / PSYCH: Alert. Oriented X 4. Appears in no acute distress. Appears in pain. Patient appears calm and cooperative. RESPIRATORY: Respirations not labored. CVS: Capillary refill less than 2 seconds. GI / : Abdomen soft and nontender. SKIN: Mucous membranes are pink. Skin is warm and dry. --08:24 Cecilia Awan R.N. Interventions ID band on patient. To treatment room. --08:24 Cecilia Awan R.N. PHYSICAL ASSESSMENT Ambulatory to room. GENERAL / NEURO / PSYCH: Alert. Oriented X 4. Appears in no acute distress. HEENT: Pupils equal, round and reactive to light. No facial asymmetry noted. Mucous membranes are pink. RESPIRATORY: Respirations not labored. CVS: Capillary refill less than 2 seconds. GI / : Abdomen soft and nontender. SKIN: Skin intact. Skin is warm and dry. Normal skin turgor. --08:24 Cecilia Awan R.N. NURSING PROGRESS NOTES 08:24 09/18/16. Oxygen administered by nasal cannula at 2 liters. Patient gowned. Reassurance given. Two patient identifiers checked. Call light placed in reach. Side rails up x 1. Bed placed in lowest position. Brakes of bed on. Patient ready for evaluation- chart flagged and ED physician notified. --08:24 Cecilia Awan R.N. EKG time: (0830). EKG was ordered, performed by a tech and shown to the ED physician. --08:33 Olya Goldsmith 08:31 09/18/2016 Site #1 started via IV in the right forearm with an 20g angiocath, with aseptic technique and good blood return; one attempt. Blood drawn: rainbow set. Labeled in the presence of the patient and sent to the lab. Saline lock flushed with 10 mL saline. --08:36 Rebecca Mcelroy R.N. 08:37 09/18/2016 Started bag #1 1000 mL IV Fluids IV NS (Saline); at 1000 mL/hr over 1 hour(s) via site #1 via IV pump. Allergies verified and confirmed 5 rights. IV patency established. IV site checked: no pain, redness, or swelling. IV flushed thoroughly pre- and post-medication administration. --08:42 Cecilia Awan R.N. 08:37 09/18/2016 Dilaudid (HYDROmorphone HCl PF) IVP 1 mg given over 1 minute(s) via site #1. Allergies verified, confirmed 5 rights and sedative warning given to the patient. IV patency established. IV site checked: no pain, redness, or swelling. IV flushed thoroughly pre- and post-medication administration. IVP given by RN. --08:42 Cecilia Awan R.N. 08:37 09/18/2016 Zofran (Ondansetron HCl) IVP 4 mg given over 1 minute(s) via site #1. Allergies verified and confirmed 5 rights. IV patency established. IV site checked: no pain, redness, or swelling. IV flushed thoroughly pre- and post-medication administration. IVP given by RN. --08:42 Cecilia Awan R.N. 09:31 09/18/2016 Dilaudid (HYDROmorphone HCl PF) IVP 1 mg given over 1 minute(s) via site #1. Allergies verified, confirmed 5 rights and sedative warning given to the patient. IV patency established. IV site checked: no pain, redness, or swelling. IV flushed thoroughly pre- and post-medication administration. IVP given by RN (per ED MD verbal order). --09:31 Cecilia Awan R.N. 09:51 09/18/16. BP: 113/48. HR: 65. RR: 12. O2 saturation: 100% on nasal cannula at 2 liters/minute. --09:52 Cecilia Awan R.N. 09:52 09/18/2016 IV Fluids IV NS Discontinued: bag #1 infused. Total amount infused: 1000 mL. IV patency established. IV site checked: no pain, redness, or swelling. IV flushed thoroughly. --09:52 Cecilia Awan R.N. 10:12 09/18/2016 Started bag #2 1000 mL IV Fluids IV NS (Saline); at 250 mL/hr over 4 hour(s) via site #1 via IV pump. Allergies verified and confirmed 5 rights. IV patency established. IV site checked: no pain, redness, or swelling. IV flushed thoroughly pre- and post-medication administration. --10:27 Cecilia Awan R.N. 10:27 09/18/16. Reassessment after fluids administered and medication administered. He reports no complaints, he is calm and resting quietly and he has had no adverse reaction. --10:27 Cecilia Awan R.N. <<STRICKEN ENTRY-- 10:47 09/18/2016 Dilaudid (HYDROmorphone HCl PF) IVP 1 mg given over 1 minute(s) via site #1. Allergies verified, confirmed 5 rights and sedative warning given to the patient. IV patency established. IV site checked: no pain, redness, or swelling. IV flushed thoroughly pre- and post-medication administration. IVP given by RN. --10:47 Cecilia Awan R.N. --END STRIKE>> Correction. --12:36 Cecilia Awan R.N. 11:53 09/18/16. BP: 117/72. HR: 76. RR: 20. O2 saturation: 99% on room air. --11:57 Cecilia Awan R.N. 10:47 09/18/2016 Dilaudid (HYDROmorphone HCl PF) IVP 1 mg given over 1 minute(s) via site #1. Allergies verified, confirmed 5 rights and sedative warning given to the patient. IV patency established. IV site checked: no pain, redness, or swelling. IV flushed thoroughly pre- and post-medication administration. IVP given by RN (per ED MD verbal order). --12:36 Cecilia Awan R.N. <<STRICKEN ENTRY-- 11:05 09/18/2016 Dilaudid (HYDROmorphone HCl PF) IVP 1 mg given over 1 minute(s) via site #1. Allergies verified, confirmed 5 rights and sedative warning given to the patient. IV patency established. IV site checked: no pain, redness, or swelling. IV flushed thoroughly pre- and post-medication administration. IVP given by RN. --11:59 Cecilia Awan R.N. --END STRIKE>> Correction. --12:36 Cecilia Awan R.N. 11:05 09/18/2016 Dilaudid (HYDROmorphone HCl PF) IVP 1 mg given over 1 minute(s) via site #1. Allergies verified, confirmed 5 rights and sedative warning given to the patient. IV patency established. IV site checked: no pain, redness, or swelling. IV flushed thoroughly pre- and post-medication administration. IVP given by RN (per ED MD verbal order). --12:36 Cecilia Awan R.N. 12:38 09/18/2016 Dilaudid (HYDROmorphone HCl PF) IVP 1 mg given over 1 minute(s) via site #1. Allergies verified, confirmed 5 rights and sedative warning given to the patient. IV patency established. IV site checked: no pain, redness, or swelling. IV flushed thoroughly pre- and post-medication administration. IVP given by RN. --12:38 Cecilia Awan R.N. DISPOSITION / DISCHARGE 12:54 09/18/16. BP: 123/49. HR: 68. RR: 18. O2 saturation: 100% on nasal cannula at 2 liters/minute. Pain level now: 09/11. --12:56 Cecilia Awan R.N. Departure time: 12:56 Sep 18 2016. Condition at departure: improved and stable. Admitted to Acute Care. Transported via stretcher by [employer]. Report was given to a nurse. Report included patient's care, treatment, medications, reviewed medication reconcilliation, and condition (including any recent changes or anticipated changes). All questions were answered. Report was acknowledged and care was transferred. (SURYA Mazariegos). Patient's personal items include: shirt, pants and wallet, iPad mini; items were given to the patient and transported with the patient. He did not have glasses, contacts, dentures or a hearing aid. --12:56 Cecilia Awan R.N. 13:00 09/18/2016 Site #[address] upon admission; patent, no pain and no signs of infection or infiltration. Flushed with 10 mL saline; flushes easily. --16:58 Cecilia Awan R.N. 13:00 09/18/2016 IV Fluids IV NS Discontinued: bag #2 discontinued upon admission. Total amount infused: 750 mL. IV patency established. IV site checked: no pain, redness, or swelling. IV flushed thoroughly. --16:58 Cecilia Awan R.N. Locked/Released at 09/18/2016 16:59 by Cecilia Awan R.N.
--- NOTE | 2016-09-18 11:19 | ED CLINICAL REPORT ---
Clinical Report - Physicians/Mid Levels [facility] [address] [place] [address] 09/18/2016 8:15 Patient: SANTIAGO OLIVEIRA Time Seen: 08:27 Sep 18 2016. Arrived- By private vehicle. Historian- patient. HISTORY OF PRESENT ILLNESS Chief Complaint: DYSPNEA and CHEST PAIN and BACK PAIN. This started just prior to arrival today and is still present. It was abrupt in onset and has been constant. The dyspnea is severe. No cough, fever, sweating episodes, chills or calf pain. No foot swelling. He has had chest pain. Similar symptoms previously: Many times. Diagnosis: (sickle cell crisis). REVIEW OF SYSTEMS No chills, fever, sweats, calf pain or cough. No difficulty breathing, pedal edema, palpitations, abdominal pain or constipation. No diarrhea, nausea, vomiting or urinary problems. The patient has had severe joint pain, involving the right knee and left knee. All systems otherwise negative, except as recorded above. PAST HISTORY Pneumonia. Sickle Cell Disease. Sickle Cell Crisis. Problems: Pneumonia. Sickle Cell Disease. Sickle Cell Crisis. Medications: Folic Acid Oral. Hydroxyurea Oral. Allergies: No Known Drug Allergy. SOCIAL HISTORY Never smoker. History of occasional drug use: marijuana. No alcohol use. Residence: [place]. FAMILY HISTORY sickle cell. ADDITIONAL NOTES The nursing notes have been reviewed. PHYSICAL EXAM Vital Signs: 09/18/2016 08:20 BP: 115/72. HR: 64. RR: 20. O2 saturation: 100%. Temp: 98.1 F. Pain level now: 8/10. Have been reviewed. Appearance: Alert. Appears to be in pain. Eyes: Pupils equal, round and reactive to light. Scleral icterus. ENT: Pharynx normal. Neck: Normal inspection. No jugular venous distention. CVS: Normal heart rate and rhythm. Heart sounds normal. Respiratory: No respiratory distress. Breath sounds normal. Abdomen: Soft and nontender. No organomegaly. Back: Normal inspection. No CVA tenderness. Skin: Skin warm and dry. Normal skin color. Normal skin turgor. Extremities: Extremities exhibit normal ROM. No calf tenderness. No lower extremity edema. Neuro: No motor deficit. No sensory deficit. LABS, X-RAYS, AND EKG EKG: Normal sinus rhythm. Normal P waves. Normal MIKE. LVH. Normal axis. Normal ST and T waves. EKG unchanged when compared with prior EKG. (21 Apr 2016). The study has been interpreted contemporaneously. The study has been independently viewed by me. The EKG appears to be a good tracing. Chest X-ray: (IMPRESSION: 1. No acute changes 2. Left basilar pleural parenchymal scarring). The X-rays were interpreted by the radiologist and contemporaneously by me. Laboratory Tests: CBC w Diff: (BRIANA: 09/18/2016 08:20) ( [facility] [place] [place] 10[facility]05) Final results Test Result Flag Units (Reference) WHITE BLOOD COUNT 13.0 H K/uL (4.5-11.5) RED BLOOD COUNT 3.10 L M/uL (4.50-5.90) HEMOGLOBIN 9.0 L gm/dL (13.5-17.5) HEMATOCRIT 27.1 L % (41.0-53.0) MEAN CELL VOLUME 87 fL (80-100) MEAN CORPUSCULAR HGB 29 pg (26-34) MEAN CORPUSCULAR HGB CONC 33 g/dL (31-37) RED CELL DISTRIBUTION WIDTH 20.8 H % (11.6-14.8) PLATELET COUNT 349 K/uL (150-400) POLY % 34 L % (50-75) BAND % 0 % (0-8) LYMPH 42 H % (25-40) MONO 10 % (3-14) EOSINOPHIL % 8 H % (0-4) BASOPHIL % 2 % (0-2) METAMYELOCYTE % 4 H % (0-1) MYELOCYTE 0 % (0-1) OTHER CELL TYPE 0 RBC MORPHOLOGY 1+ SICKLE CELL POIKILOCYTOSIS 1+ ANISOCYTOSIS 1+ SCHISTOCYTES 1+ TARGET CELLS 1+ [id number]: (BRIANA: 09/18/2016 08:20) ( CogRcvd 09/18/2016 09:37) Final results Test Result Flag Units (Reference) C-REACTIVE PROTEIN 0.4 mg/dL (0.0-0.9) [id number]: (BRIANA: 09/18/2016 08:20) ( MsgRcvd 09/18/2016 10:06) Final results Test Result Flag Units (Reference) PROCALCITONIN < 0.05 ng/mL (0-0.5) PCT Concentration: Interpretation : Risk/option for action PCT <=0.5 ng/mL : Systemic : Low risk forinfection(sepsis): progression to severeis not likely. : systemic infection.Local bacterial : CAUTION-PCT levelsinfection is : below 0.5 ng/mL do notpossible. : exclude an infection,because localizedinfections (withoutsystemic signs) may beassociated with suchlow levels. If PCT ismeasured very earlyafter a bacterialchallenge (usually <6hours), these valuesmay still be low. Inthis case PCT shouldbe re-assessed 6-24hours later. PCT >0.5 and : Systemic infection: Moderate risk for<= 2 ng/mL : (sepsis) is : progression to severepossible, but : systemic infection.other conditions : The patient should beare known to : closely monitoredelevate PCT. : both clinically andby re-assessing PCTwithin 6-24 hours. PCT > 2 ng/mL : Systemic infection: High risk for(sepsis) is likely: progression to severeunless other : systemic infection.causes are known. : PCT >= 10 ng/mL : Important systemic: High likelihood ofinflammatory : severe sepsis orresponse, almost : septic shock.exclusively due to:severe bacterial :sepsis or septic :shock. : CHEM 13 PANEL: (BRIANA: 09/18/2016 08:20) ( MsgRcvd 09/18/2016 09:39) Final results Test Result Flag Units (Reference) GLUCOSE 104 mg/dL (70-110) BUN 7 mg/dL (7-18) CREATININE 0.8 mg/dL (0.6-1.3) Estimated GFR >60 mL/min Estimated GFR- >60 mL/min Note: Persistent reduction over 3 months in eGFR<60 mL/min/1.73 m2 defines CKD. Patients with eGFR values>=60 mL/min/1.73 m2 may also have CKD if evidence ofpersistent proteinuria. Additional information may be foundat www.kidney.org. SODIUM 141 mmol/L (136-145) POTASSIUM 3.4 L mmol/L (3.5-5.1) CHLORIDE 106 mmol/L (98-107) CARBON DIOXIDE 28 mmol/L (21-32) CALCIUM 8.2 L mg/dL (8.5-10.1) TOTAL PROTEIN 6.8 g/dL (6.4-8.2) ALBUMIN 3.9 g/dL (3.3-5.0) BILIRUBIN, TOTAL 2.3 H mg/dL (0.0-1.0) ALKALINE PHOSPHATASE 99 U/L (46-116) AST (SGOT) 19 U/L (15-37) ALT (SGPT) 16 U/L (12-78) CPK 71 U/L (24-260) MAGNESIUM 1.9 mg/dL (1.8-2.4) TROPONIN I <0.05 ng/mL (0.00-1.5) TROPONIN REFERENCE RANGE:<0.1 NEGATIVE0.1-1.5 INDETERMINANT>1.5 POSITIVE . PROGRESS AND PROCEDURES Discussed case with hospitalist, (Radu). Reviewed test results and need for additional work-up. Agreed upon treatment plan, need for patient follow-up and decision to admit. Patient/family counseled. Old medical records reviewed. Disposition: Admitted. Observation. CLINICAL IMPRESSION Sickle cell crisis. (Electronically signed by Clifford Holt MD 09/18/2016 14:12) Addenda for SANTIAGO OLIVEIRA VisitID: [id number] Date: 09/18/2016 09/18/2016 12:45 I gave the nursing sstaff a verbal order that the patient may have Dilaudid 1 mg IV every 15 minutes when necessary for pain to a maximum dose of 5 mg total (Electronically signed by Clifford Holt MD - 09/18/2016 12:45)
--- NOTE | 2016-09-18 12:19 | Progress Note ---
Subjective General Admission History and Physical Examination Patient Name: Josh Escalante Admission Date: September 18, 2016 Primary Care Provider: Attending Physician: Ambrocio Lovelace MD Admitting Physician: Ambrocio Lovelace M.D. Code Status: FULL CODE Room: 207 Status: Observation, ACU SUBJECTIVE Historian: Patient Reliability: Good Chief Complaint: Chest, back, leg pain History of Present Illness: The patient is a 21-year-old male with a significant past medical history of sickle cell disease who presented to [facility] emergency department on the day of admission secondary to complaints of chest, back, and leg pain. [facility] ER evaluation was consistent with sickle cell crisis. Secondary to the above, the patient was admitted by Ambrocio Lovelace M.D. for further evaluation and treatment. The history of present was began on the day of admission the patient developed diffuse bony pain. This was noted and chest back and legs. It was severe in degree. Secondary to persistent pain the patient presented to [facility] emergency department for further evaluation and treatment. [facility] ER evaluation was consistent with acute sickle cell crisis. Secondary to the above the patient was admitted for further evaluation and treatment. PAST MEDICAL HISTORY Illnesses: 1. Sickle cell disease Allergies: 1. No known drug allergies Medications: 1. Hydroxyurea 500 mg by mouth twice a day 2. Folic acid 1 mg by mouth daily Surgery: 1. None Injuries: 1. No significant Hospitalizations: 1. Multiple episodes for sickle cell crisis FAMILY HISTORY History of sickle cell disease SOCIAL HISTORY 1. Marital Status: Single 2. Jainism: None listed 3. Education: High School, College HABITS 1. Tobacco: None 2. Drugs: None 3. Alcohol: None HEALTH SUPERVISION Item/Test 1. No recent IMMUNIZATIONS: 1. No recent ADVANCED DIRECTIVES: 1. Living well: None 2. POLST: None 3. Code Status: FULL CODE 4. Durable Power [employer] Health care: None 5. Donor card: None REVIEW OF SYSTEMS Remarkable for those things stated in the history of present illness and past medical history. Seventeen point review of system completed with the following notable findings: None Physical Exam Vital Signs / I&Os Blood pressure: 115/72 mmHg Heart rate: 64/minute Respiratory rate: 20/minute Temperature: 98.1 Fahrenheit orally Pulse oximetry: 100% room air General Appearance Alert, Oriented X3, Cooperative, Mild distress HEENT Atraumatic, PERRLA, EOMI, Moist mucous membranes, Scleral icterus Lungs Clear to auscultation, Normal air movement Neck Supple, No JVD Cardiovascular Regular rate and rhythm, Normal S1 and S2 Abdomen Normal bowel sounds, Soft, No tenderness Extremities No cyanosis, No clubbing, No edema Neurological Cranial nerves intact, Strength 5/5 x4 ext's, No lateralizing signs Psych/Mental Status Mental status normal, Mood normal LAB Results Laboratory Tests 09/18 09/18 09/18 0820 0820 0820 Chemistry Plasma Sodium (136 - 145 mmol/L) 141 Plasma Potassium (3.5 - 5.1 mmol/L) 3.4 Plasma Chloride (98 - 107 mmol/L) 106 CO2 (Enzymatic) (21 - 32 mmol/L) 28 BUN (7 - 18 mg/dL) 7 Creatinine (0.6 - 1.3 mg/dL) 0.8 Est GFR ( Amer) (mL/min) >60 Est GFR (Non-Af Amer) (mL/min) >60 Glucose (70 - 110 mg/dL) 104 Plasma Calcium (8.5 - 10.1 mg/dL) 8.2 Plasma Magnesium (1.8 - 2.4 mg/dL) 1.9 Total Bilirubin (0.0 - 1.0 mg/dL) 2.3 AST (15 - 37 U/L) 19 ALT (12 - 78 U/L) 16 Alkaline Phosphatase (46 - 116 U/L) 99 Creatine Kinase (24 - 260 U/L) 71 Troponin (0.00 - 1.5 ng/mL) <0.05 C-Reactive Protein (0.0 - 0.9 mg/dL) 0.4 Total Protein (6.4 - 8.2 g/dL) 6.8 Albumin (3.3 - 5.0 g/dL) 3.9 Procalcitonin (0 - 0.5 ng/mL) < 0.05 Hematology WBC (4.5 - 11.5 K/uL) 13.0 RBC (4.50 - 5.90 M/uL) 3.10 Hgb (13.5 - 17.5 gm/dL) 9.0 Hct (41.0 - 53.0 %) 27.1 MCV (80 - 100 fL) 87 MCH (26 - 34 pg) 29 RDW (11.6 - 14.8 %) 20.8 Neut % (Auto) (50 - 75 %) 34 Lymph % (Auto) (25 - 40 %) 42 [place] % (Auto) (3 - 14 %) 10 Eos % (Auto) (0 - 4 %) 8 Baso % (Auto) (0 - 2 %) 2 Band Neutrophils % (0 - 8 %) 0 Metamyelocytes % (0 - 1 %) 4 Myelocytes (0 - 1 %) 0 Other Cell Type 0 Plt Count, EDTA (150 - 400 K/uL) 349 RBC Morphology 1+ SICKLE CELL Poikilocytosis (manual 1+ Anisocytosis (manual) 1+ Target Cells 1+ Schistocytes 1+ PUBS MCHC (31 - 37 g/dL) 33 Assessment and Plan Problem List 1. Anemia Status Chronic Onset Date Unknown Plan -Patient presents with mild anemia. -No need for transfusion at this time. -Monitor 2. Acute sickle cell crisis Plan -Patient presents with sickle cell crisis with acute pain -H&H preserved -No need for transfusion at this time Continue with outpatient medical regimen Current status: Fair, unstable Anticipated discharge date: Anticipated discharge in 24 hours Anticipated discharge placement: Home Patient care time: Time in chart review, patient interview, physical exam, CPOE, and care documentation: 50 mins Visit to patient today: 2 Complexity of care: Moderate-High DVT prophylaxis: SCD E&M Codes Admission: Obsv-Comp/Moderate/14256 Anticipated discharge placement: Home Patient care time: Time in chart review, patient interview, physical exam, CPOE, and care documentation: 50 mins Visit to patient today: 2 Complexity of care: Moderate-High DVT prophylaxis: SCD E&M Codes Admission: Obsv-Comp/Moderate/[id number]
--- NOTE | 2016-09-18 12:19 | Progress Note ---
Subjective General Admission History and Physical Examination Patient Name: Josh Escalante Admission Date: September 18, 2016 Primary Care Provider: Attending Physician: Ambrocio Lovelace MD Admitting Physician: Ambrocio Lovelace M.D. Code Status: FULL CODE Room: 207 Status: Observation, ACU SUBJECTIVE Historian: Patient Reliability: Good Chief Complaint: Chest, back, leg pain History of Present Illness: The patient is a 21-year-old male with a significant past medical history of sickle cell disease who presented to [facility] emergency department on the day of admission secondary to complaints of chest, back, and leg pain. [facility] ER evaluation was consistent with sickle cell crisis. Secondary to the above, the patient was admitted by Ambrocio Lovelace M.D. for further evaluation and treatment. The history of present was began on the day of admission the patient developed diffuse bony pain. This was noted and chest back and legs. It was severe in degree. Secondary to persistent pain the patient presented to [facility] emergency department for further evaluation and treatment. [facility] ER evaluation was consistent with acute sickle cell crisis. Secondary to the above the patient was admitted for further evaluation and treatment. PAST MEDICAL HISTORY Illnesses: 1. Sickle cell disease Allergies: 1. No known drug allergies Medications: 1. Hydroxyurea 500 mg by mouth twice a day 2. Folic acid 1 mg by mouth daily Surgery: 1. None Injuries: 1. No significant Hospitalizations: 1. Multiple episodes for sickle cell crisis FAMILY HISTORY History of sickle cell disease SOCIAL HISTORY 1. Marital Status: Single 2. Mormonism: None listed 3. Education: High School, College HABITS 1. Tobacco: None 2. Drugs: None 3. Alcohol: None HEALTH SUPERVISION Item/Test 1. No recent IMMUNIZATIONS: 1. No recent ADVANCED DIRECTIVES: 1. Living well: None 2. POLST: None 3. Code Status: FULL CODE 4. Durable [employer] Health care: None 5. Donor card: None REVIEW OF SYSTEMS Remarkable for those things stated in the history of present illness and past medical history. Seventeen point review of system completed with the following notable findings: None Physical Exam Vital Signs / I&Os Blood pressure: 115/72 mmHg Heart rate: 64/minute Respiratory rate: 20/minute Temperature: 98.1 Fahrenheit orally Pulse oximetry: 100% room air General Appearance Alert, Oriented X3, Cooperative, Mild distress HEENT Atraumatic, PERRLA, EOMI, Moist mucous membranes, Scleral icterus Lungs Clear to auscultation, Normal air movement Neck Supple, No JVD Cardiovascular Regular rate and rhythm, Normal S1 and S2 Abdomen Normal bowel sounds, Soft, No tenderness Extremities No cyanosis, No clubbing, No edema Neurological Cranial nerves intact, Strength 5/5 x4 ext's, No lateralizing signs Psych/Mental Status Mental status normal, Mood normal LAB Results Laboratory Tests 09/18 09/18 09/18 0820 0820 0820 Chemistry Plasma Sodium (136 - 145 mmol/L) 141 Plasma Potassium (3.5 - 5.1 mmol/L) 3.4 Plasma Chloride (98 - 107 mmol/L) 106 CO2 (Enzymatic) (21 - 32 mmol/L) 28 BUN (7 - 18 mg/dL) 7 Creatinine (0.6 - 1.3 mg/dL) 0.8 Est GFR ( Amer) (mL/min) >60 Est GFR (Non-Af Amer) (mL/min) >60 Glucose (70 - 110 mg/dL) 104 Plasma Calcium (8.5 - 10.1 mg/dL) 8.2 Plasma Magnesium (1.8 - 2.4 mg/dL) 1.9 Total Bilirubin (0.0 - 1.0 mg/dL) 2.3 AST (15 - 37 U/L) 19 ALT (12 - 78 U/L) 16 Alkaline Phosphatase (46 - 116 U/L) 99 Creatine Kinase (24 - 260 U/L) 71 Troponin (0.00 - 1.5 ng/mL) <0.05 C-Reactive Protein (0.0 - 0.9 mg/dL) 0.4 Total Protein (6.4 - 8.2 g/dL) 6.8 Albumin (3.3 - 5.0 g/dL) 3.9 Procalcitonin (0 - 0.5 ng/mL) < 0.05 Hematology WBC (4.5 - 11.5 K/uL) 13.0 RBC (4.50 - 5.90 M/uL) 3.10 Hgb (13.5 - 17.5 gm/dL) 9.0 Hct (41.0 - 53.0 %) 27.1 MCV (80 - 100 fL) 87 MCH (26 - 34 pg) 29 RDW (11.6 - 14.8 %) 20.8 Neut % (Auto) (50 - 75 %) 34 Lymph % (Auto) (25 - 40 %) 42 [place] % (Auto) (3 - 14 %) 10 Eos % (Auto) (0 - 4 %) 8 Baso % (Auto) (0 - 2 %) 2 Band Neutrophils % (0 - 8 %) 0 Metamyelocytes % (0 - 1 %) 4 Myelocytes (0 - 1 %) 0 Other Cell Type 0 Plt Count, EDTA (150 - 400 K/uL) 349 RBC Morphology 1+ SICKLE CELL Poikilocytosis (manual 1+ Anisocytosis (manual) 1+ Target Cells 1+ Schistocytes 1+ PUBS MCHC (31 - 37 g/dL) 33 Assessment and Plan Problem List 1. Anemia Status Chronic Onset Date Unknown Plan -Patient presents with mild anemia. -No need for transfusion at this time. -Monitor 2. Acute sickle cell crisis Plan -Patient presents with sickle cell crisis with acute pain -H&H preserved -No need for transfusion at this time Continue with outpatient medical regimen Current status: Fair, unstable Anticipated discharge date: Anticipated discharge in 24 hours Anticipated discharge placement: Home Patient care time: Time in chart review, patient interview, physical exam, CPOE, and care documentation: 50 mins Visit to patient today: 2 Complexity of care: Moderate-High DVT prophylaxis: SCD E&M Codes Admission: Obsv-Comp/Moderate/[id number] Anticipated discharge placement: Home Patient care time: Time in chart review, patient interview, physical exam, CPOE, and care documentation: 50 mins Visit to patient today: 2 Complexity of care: Moderate-High DVT prophylaxis: SCD E&M Codes Admission: Obsv-Comp/Moderate/[id number]
[2016-09-18 13:21] VITALS: BP 111/43
[2016-09-18 14:24] VITALS: BP 118/52
--- NOTE | 2016-09-18 16:59 | ED MED RECONCILIATION SUMMARY ---
Patient: SANTIAGO OLIVEIRA Medication Reconciliation Report [facility] VisitID: [id number] [address] [place] [address] 21y, M Registration Date/Time: 09/18/2016 Weight: 61.2 kg Height/Length: 70 in. BMI: 19.4 ALLERGIES: No Known Drug Allergy The patient's Home Medications are listed below: THE FOLLOWING MEDICATIONS NEED TO BE RECONCILED: Folic Acid Oral Hydroxyurea Oral The source(s) of the original Home Medication information: patient The following Medications were given to the patient in the Emergency Department: IV NS IV Fluids bolus 0, then 1000 mL/hr, administered: 09/18/2016 8:37:00 AM Dilaudid [IVP] IVP 1 mg, administered: 09/18/2016 8:37:00 AM Zofran [IVP] IVP 4 mg, administered: 09/18/2016 8:37:00 AM Dilaudid [IVP] IVP 1 mg, administered: 09/18/2016 9:31:00 AM IV NS IV Fluids bolus 0, then 250 mL/hr, administered: 09/18/2016 10:12:00 AM Dilaudid [IVP] IVP 1 mg, administered: 09/18/2016 10:47:00 AM Dilaudid [IVP] IVP 1 mg, administered: 09/18/2016 11:05:00 AM Dilaudid [IVP] IVP 1 mg, administered: 09/18/2016 12:38:00 PM The following Medications were prescribed to the patient: None.
--- NOTE | 2016-09-18 16:59 | ED DISCHARGE INSTRUCTIONS ---
Patient: SANTIAGO OLIVEIRA General Instructions [facility] VisitID: [id number] [address] [place] [address] 21y, M Registration Date/Time: 09/18/2016 Sickle cell crisis. (Electronically signed by Clifford Holt MD 09/18/2016 14:12)
--- NOTE | 2016-09-18 16:59 | ED MAR SUMMARY ---
..... Medication Administration Record [facility] [address] [place] [address] Patient: SANTIAGO OLIVEIRA Visit ID: [id number] 21y, M Weight: 61.2 kg Height/Length: 70 in BMI: 19.4 ALLERGIES: No Known Drug Allergy Given 08:37 09/18/2016 Cecilia Awan R.N. Medication Administered: DILAUDID [IVP] (HYDROMORPHONE HCL PF), Dose: 1 mg IVP over 1 minute(s), Site: #1 right forearm. Medication Ordered: Dilaudid IV 1 mg (NOW). Start 08:37 09/18/2016 Cecilia Awan R.N., Stop 09:52 09/18/2016 Cecilia Awan R.N. Medication Administered: IV NS (SALINE), Dose: IV Fluids over 1 hour(s), Rate: 1000 mL/hr, Dispensed: 1000 mL bag, Site: #1 right forearm. Medication Ordered: IV NS : initial bolus 1000 mL (1000 mL/hr), then 250 mL/hr for 4h (NOW); Routine. Given 08:37 09/18/2016 Cecilia Awan R.N. Medication Administered: ZOFRAN [IVP] (ONDANSETRON HCL), Dose: 4 mg IVP over 1 minute(s), Site: #1 right forearm. Medication Ordered: Zofran IV 4 mg (NOW). Given 09:31 09/18/2016 Cecilia Awan R.N. Medication Administered: DILAUDID [IVP] (HYDROMORPHONE HCL PF), Dose: 1 mg IVP over 1 minute(s), Site: #1 right forearm. Medication Ordered: Dilaudid IV 1 mg (NOW). Start 10:12 09/18/2016 Cecilia Awan R.N., Stop 13:00 09/18/2016 Cecilia Awan R.N. Medication Administered: IV NS (SALINE), Dose: IV Fluids over 4 hour(s), Rate: 250 mL/hr, Dispensed: 1000 mL bag, Site: #1 right forearm. Medication Ordered: IV NS : initial bolus 1000 mL (1000 mL/hr), then 250 mL/hr for 4h (NOW); Routine. Given 10:47 09/18/2016 Cecilia Awan R.N. Medication Administered: DILAUDID [IVP] (HYDROMORPHONE HCL PF), Dose: 1 mg IVP over 1 minute(s), Site: #1 right forearm. Medication Ordered: Dilaudid IV 1 mg (NOW). Given 11:05 09/18/2016 Cecilia Awan R.N. Medication Administered: DILAUDID [IVP] (HYDROMORPHONE HCL PF), Dose: 1 mg IVP over 1 minute(s), Site: #1 right forearm. Medication Ordered: Dilaudid IV 1 mg (NOW). Given 12:38 09/18/2016 Cecilia Awan RPat. Medication Administered: DILAUDID [IVP] (HYDROMORPHONE HCL PF), Dose: 1 mg IVP over 1 minute(s), Site: #1 right forearm. Medication Ordered: Dilaudid IV 1 mg (HIGH ALERT MEDICATION, NOW).
--- NOTE | 2016-09-18 16:59 | ED MED RECONCILIATION SUMMARY ---
Patient: SANTIAGO OLIVEIRA Medication Reconciliation Report [facility] VisitID: [id number] [address] [place] [address] 21y, M Registration Date/Time: 09/18/2016 Weight: 61.2 kg Height/Length: 70 in. BMI: 19.4 ALLERGIES: No Known Drug Allergy The patient's Home Medications are listed below: THE FOLLOWING MEDICATIONS NEED TO BE RECONCILED: Folic Acid Oral Hydroxyurea Oral The source(s) of the original Home Medication information: patient The following Medications were given to the patient in the Emergency Department: IV NS IV Fluids bolus 0, then 1000 mL/hr, administered: 09/18/2016 8:37:00 AM Dilaudid [IVP] IVP 1 mg, administered: 09/18/2016 8:37:00 AM Zofran [IVP] IVP 4 mg, administered: 09/18/2016 8:37:00 AM Dilaudid [IVP] IVP 1 mg, administered: 09/18/2016 9:31:00 AM IV NS IV Fluids bolus 0, then 250 mL/hr, administered: 09/18/2016 10:12:00 AM Dilaudid [IVP] IVP 1 mg, administered: 09/18/2016 10:47:00 AM Dilaudid [IVP] IVP 1 mg, administered: 09/18/2016 11:05:00 AM Dilaudid [IVP] IVP 1 mg, administered: 09/18/2016 12:38:00 PM The following Medications were prescribed to the patient: None.
--- NOTE | 2016-09-18 16:59 | ED DISCHARGE INSTRUCTIONS ---
Patient: SANTIAGO OLIVEIRA General Instructions [facility] VisitID: [id number] [address] [place] [address] 21y, M Registration Date/Time: 09/18/2016 Sickle cell crisis. (Electronically signed by Clifford Holt MD 09/18/2016 14:12)
--- NOTE | 2016-09-18 16:59 | ED MAR SUMMARY ---
..... Medication Administration Record [facility] [address] [place] [address] Patient: SANTIAGO OLIVEIRA Visit ID: [id number] 21y, M Weight: 61.2 kg Height/Length: 70 in BMI: 19.4 ALLERGIES: No Known Drug Allergy Given 08:37 09/18/2016 Cecilia Awan R.N. Medication Administered: DILAUDID [IVP] (HYDROMORPHONE HCL PF), Dose: 1 mg IVP over 1 minute(s), Site: #1 right forearm. Medication Ordered: Dilaudid IV 1 mg (NOW). Start 08:37 09/18/2016 Cecilia Awan R.N., Stop 09:52 09/18/2016 Cecilia Awan R.N. Medication Administered: IV NS (SALINE), Dose: IV Fluids over 1 hour(s), Rate: 1000 mL/hr, Dispensed: 1000 mL bag, Site: #1 right forearm. Medication Ordered: IV NS : initial bolus 1000 mL (1000 mL/hr), then 250 mL/hr for 4h (NOW); Routine. Given 08:37 09/18/2016 Cecilia Awan R.N. Medication Administered: ZOFRAN [IVP] (ONDANSETRON HCL), Dose: 4 mg IVP over 1 minute(s), Site: #1 right forearm. Medication Ordered: Zofran IV 4 mg (NOW). Given 09:31 09/18/2016 Cecilia Awan R.N. Medication Administered: DILAUDID [IVP] (HYDROMORPHONE HCL PF), Dose: 1 mg IVP over 1 minute(s), Site: #1 right forearm. Medication Ordered: Dilaudid IV 1 mg (NOW). Start 10:12 09/18/2016 Cecilia Awan R.N., Stop 13:00 09/18/2016 Cecilia Awan R.N. Medication Administered: IV NS (SALINE), Dose: IV Fluids over 4 hour(s), Rate: 250 mL/hr, Dispensed: 1000 mL bag, Site: #1 right forearm. Medication Ordered: IV NS : initial bolus 1000 mL (1000 mL/hr), then 250 mL/hr for 4h (NOW); Routine. Given 10:47 09/18/2016 Cecilia Awan R.N. Medication Administered: DILAUDID [IVP] (HYDROMORPHONE HCL PF), Dose: 1 mg IVP over 1 minute(s), Site: #1 right forearm. Medication Ordered: Dilaudid IV 1 mg (NOW). Given 11:05 09/18/2016 Cecilia Awan R.N. Medication Administered: DILAUDID [IVP] (HYDROMORPHONE HCL PF), Dose: 1 mg IVP over 1 minute(s), Site: #1 right forearm. Medication Ordered: Dilaudid IV 1 mg (NOW). Given 12:38 09/18/2016 Cecilia Awan RPat. Medication Administered: DILAUDID [IVP] (HYDROMORPHONE HCL PF), Dose: 1 mg IVP over 1 minute(s), Site: #1 right forearm. Medication Ordered: Dilaudid IV 1 mg (HIGH ALERT MEDICATION, NOW).
[2016-09-18 18:00] VITALS: BP 127/61
[2016-09-18 21:35] VITALS: BP 122/60
[2016-09-19 02:54] VITALS: BP 120/50
--- NOTE | 2016-09-19 06:52 | Progress Note ---
Subjective General Note Date: September 19, 2016 Admission Date: September 18, 2016 Hospital Day: 2 Status: Observation, ACU Advanced Directive: FULL CODE Room: 207 Admission History: The patient is a 21-year-old male with a significant past medical history of sickle cell disease who presented to [facility] emergency department on the day of admission secondary to complaints of chest, back, and leg pain. [facility] ER evaluation was consistent with sickle cell crisis. Secondary to the above, the patient was admitted by Ambrocio Lovelace M.D. for further evaluation and treatment. For other history present illness, past medical history, family history, social history, review of systems, and admission physical examination please see the patient's history and physical examination and ER visit note in the patient's medical record. Subjective: The patient states he is doing well at this time. Pain dramatically improved. No other complaints. Ready for discharge Patient requests: Discharge today Medications and Allergies Medications Current Medications Sig/Cornel Start time Last Medication Dose Route Stop Time Status Admin Hydroxyurea 1,000 MG DAILY 09/19 0900 AC PO Folic Acid 1 MG DAILY 09/18 1803 AC 09/18 PO 1933 Diphenhydramine HCl 25 MG Q6H PRN 09/18 1415 AC 09/19 IV 0216 Acetaminophen 650 MG Q6H PRN 09/18 1245 AC 09/18 PO 1333 Dextrose/Sodium 1,000 ML ASDIRECTED 09/18 1245 AC 09/19 Chloride/Electrolyt IV 0444 Hydromorphone HCl See Dose Q1H PRN 09/18 1245 AC 09/19 Insts (1) IV 0444 Ondansetron HCl 4 MG Q6H PRN 09/18 1245 AC IV Dose Instructions: (1)Hydromorphone HCl: 1 - 2 MG Allergies Coded Allergies: No Known Drug Allergy (09/18/16) Reconcile Medications Scheduled Medications Folic Acid (Folic Acid 1 MG) 1 MG TAB 1 MG PO DAILY (Reported) Hydroxyurea (Hydrea 500 MG) 500 MG CAP 500 MG PO BID Scheduled PRN Medications Hydrocodone-Acetaminophen 10/325 MG ([place] 10/325 MG) 1 TAB TAB 1 TAB PO Q4H PRN pain Discontinued Medications Cephalexin (Keflex) 500 MG CAP 500 MG PO TID Discontinued reason: No Longer Taking Hydrocodone-Acetaminophen 10/300 MG (Vicodin Hp 10/300MG) 1 TAB TAB 1 TAB PO Q6H PRN pain Discontinued reason: No Longer Taking Physical Exam Vital Signs / I&Os Vital Signs Date Time Temp Pulse Resp B/P Pulse O2 O2 Flow FiO2 Ox Delivery Rate 09/19 0254 98.4 72 16 120/50 93 Room Air 09/18 2135 98.8 70 16 122/60 97 Room Air 09/18 1800 97.9 84 16 127/61 99 Room Air 09/18 1614 97 09/18 1424 98.1 78 16 118/52 97 Room Air 09/18 1321 98.2 64 20 111/43 95 Room Air I&O 09/19 0000 09/18 1600 09/18 0800 Intake Total 1376 0 Output Total 1525 Balance -149 0 General Appearance Alert, Oriented X3, Cooperative, No acute distress Lungs Clear to auscultation, Normal air movement Cardiovascular Regular rate and rhythm, Normal S1 and S2 Abdomen Normal bowel sounds, Soft, No tenderness Extremities No cyanosis, No clubbing, No edema Neurological Cranial nerves intact, Strength 5/5 x4 ext's, No lateralizing signs Psych/Mental Status Mental status normal, Mood normal LAB Results Laboratory Tests 09/18 09/18 09/18 09/18 1810 0820 0820 0820 Chemistry Plasma Sodium (136 - 145 mmol/L) 141 Plasma Potassium (3.5 - 5.1 mmol/L) 3.4 Plasma Chloride (98 - 107 mmol/L) 106 CO2 (Enzymatic) (21 - 32 mmol/L) 28 BUN (7 - 18 mg/dL) 7 Creatinine (0.6 - 1.3 mg/dL) 0.8 Est GFR ( Amer) (mL/min) >60 Est GFR (Non-Af Amer) (mL/min) >60 Glucose (70 - 110 mg/dL) 104 Plasma Calcium (8.5 - 10.1 mg/dL) 8.2 Plasma Magnesium (1.8 - 2.4 mg/dL) 1.9 Total Bilirubin (0.0 - 1.0 mg/dL) 2.3 AST (15 - 37 U/L) 19 ALT (12 - 78 U/L) 16 Alkaline Phosphatase (46 - 116 U/L) 99 Creatine Kinase (24 - 260 U/L) 71 Troponin (0.00 - 1.5 ng/mL) <0.05 C-Reactive Protein (0.0 - 0.9 mg/dL) 0.4 Total Protein (6.4 - 8.2 g/dL) 6.8 Albumin (3.3 - 5.0 g/dL) 3.9 Procalcitonin (0 - 0.5 ng/mL) < 0.05 Hematology WBC (4.5 - 11.5 K/uL) 13.9 13.0 RBC (4.50 - 5.90 M/uL) 2.75 3.10 Hgb (13.5 - 17.5 gm/dL) 8.0 9.0 Hct (41.0 - 53.0 %) 24.2 27.1 MCV (80 - 100 fL) 88 87 MCH (26 - 34 pg) 29 29 RDW (11.6 - 14.8 %) 21.1 20.8 Gran % 55.1 Neut % (Auto) (50 - 75 %) 34 Lymph % (Auto) (25 - 40 %) 34.6 42 [place] % (Auto) (3 - 14 %) 10.3 10 Eos % (Auto) (0 - 4 %) 8 Baso % (Auto) (0 - 2 %) 2 Band Neutrophils % (0 - 8 %) 0 Metamyelocytes % (0 - 1 %) 4 Myelocytes (0 - 1 %) 0 Other Cell Type 0 Plt Count, EDTA (150 - 400 K/uL) 301 349 RBC Morphology 1+ SICKLE CELL Poikilocytosis (manual 1+ Anisocytosis (manual) 1+ Target Cells 1+ Schistocytes 1+ PUBS MCHC (31 - 37 g/dL) 33 33 Assessment and Plan Problem List 1. Acute sickle cell crisis Plan -Resolved -Mild anemia not requiring transfusion -Discharge today with outpatient follow with PCP this week Current status: Fair, improved Anticipated discharge date: Today Anticipated discharge placement: Home Patient care time: Time in chart review, patient interview, physical exam, CPOE, and care documentation: Greater than 30 mins Visit to patient today: 1 Complexity of care: Moderate DVT prophylaxis: SCD For other recommendations regarding discharge diet, activity, followup, and discharge medications please see the patient's discharge instructions. Greater than 30 min. was spent in the patient's discharge preparation including discharge interview and physical examination, progress note, discharge instructions, and discharge summary E&M Codes Discharge: Observation - All/[id number]
--- NOTE | 2016-09-19 06:54 | Discharge Summary ---
Discharge Summary Report Admit Date 09/18/16 Discharge Date 09/19/16 Admission Diagnosis 1. Acute sickle cell crisis 2. Anemia Discharge Diagnosis 1. Acute sickle cell crisis 2. Anemia Brief History The patient is a 21-year-old male with a significant past medical history of sickle cell disease who presented to [facility] emergency department on the day of admission secondary to complaints of chest, back, and leg pain. [facility] ER evaluation was consistent with sickle cell crisis. Secondary to the above, the patient was admitted by Ambrocio Lovelace M.D. for further evaluation and treatment. For other history present illness, past medical history, family history, social history, review of systems, and admission physical examination please see the patient's history and physical examination and ER visit note in the patient's medical record. Hospital Course The following problems and their management were noted during the patient's hospitalization: 1. Acute sickle cell crisis The patient presented with findings of acute sickle cell crisis. There is a strong rapidly with IV fluid hydration and pain control. On the day of discharge patient was significantly improved. Persistent anemia of mild degree. No requirement for transfusion during the patient's hospitalization. He will follow-up with his PCP this week. He'll continue on Hydrea 500 mg by mouth twice a day and folic acid 1 mg by mouth daily 2. Anemia Mild anemia. No need for transfusion. Outpatient follow-up with PCP. General Appearance Alert, Oriented X3, Cooperative, No acute distress Lungs Clear to auscultation, Normal air movement Cardiovascular Regular Rate, Normal S1, Normal S2 Abdomen Normal bowel sounds, Soft Psych/Mental Status Mental status NL, Mood NL Lab/Imaging Laboratory Tests 09/18 09/18 09/18 09/18 1810 0820 0820 0820 Chemistry Plasma Sodium (136 - 145 mmol/L) 141 Plasma Potassium (3.5 - 5.1 mmol/L) 3.4 Plasma Chloride (98 - 107 mmol/L) 106 CO2 (Enzymatic) (21 - 32 mmol/L) 28 BUN (7 - 18 mg/dL) 7 Creatinine (0.6 - 1.3 mg/dL) 0.8 Est GFR ( Amer) (mL/min) >60 Est GFR (Non-Af Amer) (mL/min) >60 Glucose (70 - 110 mg/dL) 104 Plasma Calcium (8.5 - 10.1 mg/dL) 8.2 Plasma Magnesium (1.8 - 2.4 mg/dL) 1.9 Total Bilirubin (0.0 - 1.0 mg/dL) 2.3 AST (15 - 37 U/L) 19 ALT (12 - 78 U/L) 16 Alkaline Phosphatase (46 - 116 U/L) 99 Creatine Kinase (24 - 260 U/L) 71 Troponin (0.00 - 1.5 ng/mL) <0.05 C-Reactive Protein (0.0 - 0.9 mg/dL) 0.4 Total Protein (6.4 - 8.2 g/dL) 6.8 Albumin (3.3 - 5.0 g/dL) 3.9 Procalcitonin (0 - 0.5 ng/mL) < 0.05 Hematology WBC (4.5 - 11.5 K/uL) 13.9 13.0 RBC (4.50 - 5.90 M/uL) 2.75 3.10 Hgb (13.5 - 17.5 gm/dL) 8.0 9.0 Hct (41.0 - 53.0 %) 24.2 27.1 MCV (80 - 100 fL) 88 87 MCH (26 - 34 pg) 29 29 RDW (11.6 - 14.8 %) 21.1 20.8 Gran % 55.1 Neut % (Auto) (50 - 75 %) 34 Lymph % (Auto) (25 - 40 %) 34.6 42 [place] % (Auto) (3 - 14 %) 10.3 10 Eos % (Auto) (0 - 4 %) 8 Baso % (Auto) (0 - 2 %) 2 Band Neutrophils % (0 - 8 %) 0 Metamyelocytes % (0 - 1 %) 4 Myelocytes (0 - 1 %) 0 Other Cell Type 0 Plt Count, EDTA (150 - 400 K/uL) 301 349 RBC Morphology 1+ SICKLE CELL Poikilocytosis (manual 1+ Anisocytosis (manual) 1+ Target Cells 1+ Schistocytes 1+ PUBS MCHC (31 - 37 g/dL) 33 33 Discharge Instructions/Meds For other recommendations regarding discharge diet, activity, followup, and discharge medications please see the patient's discharge instructions. Discharge condition: Fair, improved Greater than 30 min. was spent in the patient's discharge preparation including discharge interview and physical examination, progress note, discharge instructions, and discharge summary The patient was interviewed and examined on the day of discharge. E&M Codes Discharge: Observation - [id number]
[2016-09-19 07:21] VITALS: BP 124/78
[2016-09-19 10:44] VITALS: BP 131/61
[2016-09-19] MEDS ORDERED: HYDREA500 MG PO ×2 (10:45→10:51)
[2016-09-19] MEDS ORDERED: NORCO1 TAB PO (10:45)
--- NOTE | 2016-09-19 10:46 | Provider's Discharge Care Plan ---
Problem, Goal, Plan Problem List 1. Acute sickle cell crisis Goals: Improve disease control, Improve function, Improved health/wellness, Prevent disease progress Instructions: Follow up as directed, Take meds as directed, Avoid processed foods
== END 2016-09-19 11:48 | disposition home or self-care (01) ==
LOC: ED SRH 08:13 → TRANS SRH 12:07 → ACUTE2 SRH 13:08
PROVIDERS: ADMIT Emergency Medicine
DX: D57.00 Hb-SS disease with crisis, unspecified (principal)
CPT/HCPCS: 29230; 29242; 29247; 29263; 90074; 90100; 90616; 91585; 91643; 92610; 92720; 93004; 95059